=== PATIENT | female | born 1975 | race Caucasian/White ===

== ENCOUNTER → 2017-09-10 14:56 | Outpatient (REF) | payer BC, SELFPAY ==
--- NOTE | 2017-09-10 13:30 | PAPFT_PTH ---
PATIENT: Nancy Carrion LOC: [facility] U#:[id number] AGE/SX: 49/F ROOM: RE09/10/[address]: Romel Hawkins : 1975 BED: DIS: SPEC #: [id number] RECD: 09/12/17 12:51 STATUS: JEANINE SAN #: [id number] ASIF: 09/10/17 13:[address]: Romel Hawkins DEPT: [facility] Cytology RECD BY: Diana Garcia Tissues: 1 - CX/ENDOCX FOR PAP SMEARS Procedures: PAP THIN PREP/UVM Screening HPV DNA PROBE Comments: [id number]
== END ==
LOC: NCHCN 14:56
PROVIDERS: PCP Physician Assistant Medical; Visit Provider Physician Assistant Medical
DX: Z12.4 Encounter for screening for malignant neoplasm of cervix (principal); Z11.51 Encounter for screening for human papillomavirus (HPV)
CPT/HCPCS: 88142; 87624

== ENCOUNTER → 2017-09-17 00:50 | Outpatient (CLI) | payer BC, SELFPAY ==
--- NOTE | 2017-09-17 08:00 | DI.REPORT_ITS ---
SYMPTOM/DIAGNOSIS: SCREENING, [facility] MAINTENANCE, Z00.8 MAMMOGRAM: Mammograms were interpreted according to the usual protocol including computer analysis with CAD system, tomosynthesis and C view imaging. No previous images were extent at the time of this interpretation. The breast tissue is of moderate radiodensity. Regions of increased density are identified in the upper outer quadrant of each breast. On the CC projection there is a question regarding the possibility of bilateral lateral breast masses. Further assessment with bilateral CC compression spot films and ultrasound is recommended. IMPRESSION: Further assessment with bilateral CC compression spot films and ultrasound is recommended. MQSA ASSESSMENT OF FINDINGS: Incomplete: Needs additional imaging evaluation. Category 0. Patient will receive a letter notifying them of these results. BI-RADS category B. There are scattered areas of fibroglandular density.
== END ==
PROVIDERS: PCP Physician Assistant Medical; Visit Provider Physician Assistant Medical
DX: Z00.00 Encounter for general adult medical examination without abnormal findings (principal); Z12.31 Encounter for screening mammogram for malignant neoplasm of breast; R92.8 Other abnormal and inconclusive findings on diagnostic imaging of breast
CPT/HCPCS: 77063; 77067

== ENCOUNTER → 2017-09-17 07:53 | Outpatient (CLI) | payer BC, SELFPAY ==
[2017-09-17 08:59] LABS: BUN 12 mg/dL (7-18); CREATININE 0.91 mg/dL (0.55-1.02); Calcium 8.6 mg/dL (8.5-10.1); Chloride 104 mmol/L (98-107); Cholesterol 187 mg/dL (50-200); Glucose 84 mg/dL (70-100); HDL Cholesterol 51 mg/dL (40-60); LDL CHOLESTEROL 124 mg/dL (<100); Potassium 4.3 mmol/L (3.5-5.1); Sodium 138 mmol/L (136-145); Triglyceride 96 mg/dL (30-150)
== END ==
PROVIDERS: PCP Physician Assistant Medical; Visit Provider Physician Assistant Medical
DX: Z00.00 Encounter for general adult medical examination without abnormal findings (principal); Z13.220 Encounter for screening for lipoid disorders; Z13.228 Encounter for screening for other metabolic disorders
CPT/HCPCS: 36415; 80048; 80061; 83721

== ENCOUNTER → 2017-09-26 03:04 | Outpatient (CLI) | payer BC, SELFPAY ==
--- NOTE | 2017-09-26 09:42 | DI.REPORT_ITS ---
SYMPTOM/DIAGNOSIS: F/U ABNL MAMMO, INCREASED DENSITY UPPER OUTER QUADRANT BOTH BREASTS ADDITIONAL VIEWS BOTH BREASTS: Additional images are interpreted according to the usual protocol including tomosynthesis and 2D imaging. CC spot compression views with tomography were performed of the posterolateral portions of both breasts. No persistent abnormality is seen. The findings are consistent with overlapping fibroglandular tissue. IMPRESSION: Category 1-B, negative mammogram. Bilateral screening is recommended in one year. SA ASSESSMENT OF FINDINGS: Negative. Category 1. Patient will receive a letter notifying them of these results. BI-RADS category B. There are scattered areas of fibroglandular density.
== END ==
PROVIDERS: PCP Physician Assistant Medical; Visit Provider Physician Assistant Medical
DX: Z12.31 Encounter for screening mammogram for malignant neoplasm of breast (principal); R92.8 Other abnormal and inconclusive findings on diagnostic imaging of breast; N64.59 Other signs and symptoms in breast
CPT/HCPCS: 77063; 77067

== ENCOUNTER → 2017-09-30 16:40 | Outpatient (REF) | payer BC, SELFPAY | LOC: NCHCN 16:40 | PROVIDERS: PCP Physician Assistant Medical; Visit Provider Family Medicine | DX: J02.9 Acute pharyngitis, unspecified (principal) | CPT/HCPCS: 87070 ==

== ENCOUNTER 2018-01-08 06:08 | Day surgery (SDC) | payer BC, SELFPAY ==
[2018-01-08 06:15] VITALS: BP 122/85; PULSE 88; RESP 20; TEMP 36.7; O2SAT 100
--- NOTE | 2018-01-08 06:32 | HPE_ITS ---
Date of service: 01/08/18 Time of Service: 06:32 Assessment and Plan (1) Family history of malignant neoplasm of colon in first degree relative diagnosed when younger than 60 years of age: Current visit: No Status: Acute P\\ Colonoscopy under sedation in December Risks, benefits and complications have been reviewed. Complications include but are not limited to bleeding, pain, perforation, missed small lesion/ polyp, sore throat, aspiration and adverse reaction to the medications. Questions were entertained and answered to their satisfaction and they wished to proceed. No guarantees were given or implied. History of Present Illness Narrative: Has had small hemorrhoids in the past. Had one hard BM on Friday and noted a swollen hemorrhoid. It has persisted and has increased in size some. She has been doing sitz baths. She has not tried a hemorrhoid cream yet. It is uncomfortable when sitting for long periods but tolerable. She has not had any bleeding. She also mentioned that she has a family history of colon cancer. Her brother was diagnosed at age 50 and her father at age 60. She had a colonoscopy/EGD about 12 years ago for some GI issues that ended up being ivet to allergies. She has had no reflux symptoms since avoiding the foods she is allergic to. She denies any changes in bowel habits, melena or hematochezia. No changes in her health since I last saw her. Her thrombosed hemorrhoid that was opened up has healed Review of Systems Constitutional Denies fever(s) Cardiovascular Denies chest pain, Denies rapid heart rate, Denies palpitations, Denies dyspnea and Denies dyspnea on exertion Respiratory Denies dyspnea and Denies dyspnea on exertion Gastrointestinal Reports as per HPI Endocrine Denies palpitations PFSH Family History Father Colon cancer Brother Colon cancer Mother Heart disease Medical History Allergic rhinitis (Chronic) GERD (gastroesophageal reflux disease) (Chronic) Internal hemorrhoids (Chronic) Multiple food allergies (Chronic) Seasonal allergies (Chronic) Social History household members: spouse Smoking/Tobacco Use Status: Never alcohol intake: current alcohol intake frequency: holidays/special occasions only substance use type: does not use Surgical History H/O colonoscopy (Resolved ~2004) History of bunionectomy of both great toes (Resolved) Meds Home Medications Medication Instructions Recorded Confirmed Type mometasone [Nasonex] 17 gm NS DIRECTED 12/29/14 01/08/18 History bisacodyl 5 mg tablet,delayed 5 mg PO ONCE #4 tab 11/07/17 01/08/18 Rx release polyethylene glycol 3350 17 gram 255 g PO DAILY #15 each 11/07/17 01/08/18 Rx oral powder packet calcium-magnesium 1 tab PO BID 01/08/18 01/08/18 History norethindrone ac-eth estradiol 1 tab PO DAILY 01/08/18 01/08/18 History [Microgestin 1.5 (21)] Allergies Allergy/AdvReac Type Severity Reaction Status Date / Time chlorhexidine Allergy Severe felt like Verified 01/08/18 06:24 my foot was on fire erythromycin base Allergy Severe vomiting Verified 01/08/18 06:24 Exam Resp Effort & Inspection: normal respiratory effort Auscultation: clear to auscultation bilaterally Cardio Rate: regular rate Rhythm: regular rhythm Heart Sounds: no click, no gallops, no murmurs and no rubs Results Last Vital Signs Temp 98.1 F 01/08/18 06:15 Pulse 88 01/08/18 06:15 Resp 20 01/08/18 06:15 BP 122/85 01/08/18 06:15 Pulse Ox 100 01/08/18 06:15
--- NOTE | 2018-01-08 06:38 | COLE_ITS ---
Date of service: 01/08/18 Time of Service: 07:28 Colonoscopy Report Date of procedure: 01/08/18 Pre-op diagnosis general: Family History of colon Cancer in first degree relative <60 Post-op diagnosis procedure note: same Procedure: Colonoscopy Surgeon: Aletha Mathur Anesthesia proc note operative: MAC ([place], PUBLIC SAF[employer]Y POLICE / ASA 2) Estimated blood loss (mL): 0 Pathology: none sent Complications: None Disposition: same day Indications: Mrs Carrion is a pleasant 42-year-old female who was seen in the office for a thrombosed hemorrhoid as well as to discuss a colonoscopy. Her father had colon cancer at age 60 and her brother was diagnosed at age 50. Risks, benefits, and complications of the procedure were reviewed with her and she wished to proceed. No guarantees were given or implied. Prep: Miralax/Dulcolax Procedure Start Time: :28 Procedure End Time: 07:49 Retraction Time: 14 minutes Findings: Normal Colon Procedure Description: After informed consent was obtained the patient was taken to the procedure room and placed in a left decubitous position. Monitors were applied and a time out was done. The patients name, date of , procedure, allergies to medications and metal in their body was reviewed. The patient was then sedated. Once sedated and comfortable a rectal exam was done. External exam was normal. Internal exam revealed a normal sphincter tone and no palpable masses. The scope was then introduced and retro-flexed. No internal hemorrhoids were identified. The scope was then advanced to the cecum without difficulty. The TI and appendiceal orifice were identified. The prep was good. The scope was then slowly retracted over 14 minutes back into the rectum. The scope was removed and the patient was woken up and taken back to Same day surgery in stable condition. The patient tolerated the procedure well and there were no immediate complications. Follow up: The patient should follow up in 5 years due to her family history, unless they develop changes in bowel habits or other new gastrointestinal complaints.
--- NOTE | 2018-01-08 06:40 | PDOC.DSDIS_ITS ---
Discharge Plan Disposition Patient Disposition: HOME Condition: Good Discharge Details Reason For Visit: Colonoscopy Attending Provider: Aletha Mathur Primary Care Provider: Romel Hawkins Home Meds and New Rx's Prescriptions: Continue mometasone [Nasonex] 17 GM spray,non-aerosol 17 gm NS DIRECTED RF: 0 norethindrone ac-eth estradiol [Microgestin 1.5/30 (21)] 1.5-30 mg-mcg Tablet 1 tab PO DAILY RF: 0 calcium-magnesium 300-300 mg Tablet 1 tab PO BID RF: 0 Discontinued bisacodyl [Dulcolax (bisacodyl)] 5 mg tablet,delayed release (DR/EC) 5 mg PO ONCE Qty: 4 RF: 0 polyethylene glycol 3350 17 gram powder in packet 255 g PO DAILY Qty: 15 RF: 0 Discharge Instructions Instructions: Colonoscopy (DC) Additional Instructions: Findings: Normal Colon Follow up: 5 years due to your family history New Medications: none Please call if you develop: fevers >101.5 Nausea or Vomiting Abdominal pain that is not transient DAY SURGERY UNIT POST COLONOSCOPY INSTRUCTIONS 1. Because there will be medication in your system for the next 24 hours, you may feel a little sleepy. Your coordination will be affected. Therefore: a. Do not drive or operate dangerous equipment for 24 hours. b. Do not drink alcohol beverages for 24 hours (not even beer). c. Plan to go home and rest for the day. 2. Generally there are no restrictions on your activity after a day or so has gone by, but you may feel a bit fatigued for a few days. 3 After you arrive home you may have a light meal and return to a normal diet as you can tolerate it without feeling sick to your stomach. 4. After surgery, you may feel pain or discomfort. This should be only transient , but if it persists please contact your doctor. 5. If there are any questions regarding the findings of your procedure, please feel free to contact your doctor. 6. If you are unable to contact your doctor with a problem, contact the hospital at [phone]. 7. Continue all your regular medications unless directed otherwise. I understand the above instructions and have no questions. Signature of Patient or Responsible Adult Escort Date/Time Name of Responsible Adult Escort Signature of Nurse Date/Time Stand Alone Forms: Marvin Samayoa (DSU) Activity:: Activity as Tolerated Diet:: As Tolerated Discharge Orders Discharge Orders: Discharge Order (Routine); Ordered 01/08/18 Ordered By: Aletha Mathur DS: Diagnosis Discharge Diagnosis (1) Family history of malignant neoplasm of colon in first degree relative diagnosed when younger than 60 years of age: Status: Acute
[2018-01-08] MEDS: Lactated Ringers 1,000 ML 80 ML IV (06:44)
[2018-01-08 08:17] VITALS: BP 122/86; PULSE 68; RESP 18; TEMP 37.2; O2SAT 100
== END 2018-01-08 08:39 | disposition home or self-care (01) ==
PROVIDERS: PCP Physician Assistant Medical; Visit Provider Surgery
PROC: 0DJD8ZZ Inspection of Lower Intestinal Tract, Via Natural or Artificial Opening Endoscopic (ICD-10-PCS; CPT 45378; principal; 2018-01-08 07:45)
DX: Z12.11 Encounter for screening for malignant neoplasm of colon (principal); Z80.0 Family history of malignant neoplasm of digestive organs; K21.9 Gastro-esophageal reflux disease without esophagitis
CPT/HCPCS: 45378; 81025; NC; J3010

== ENCOUNTER 2018-01-17 00:18 | Emergency (ER) | payer BC, SELFPAY ==
[2018-01-17 00:21] VITALS: BP 154/95; PULSE 89; RESP 20; TEMP 36.4; O2SAT 100
--- NOTE | 2018-01-17 00:44 | DI.CT_ITS ---
SYMPTOM/DIAGNOSIS: HEADACHE NONCONTRAST HEAD CT: No intracranial hemorrhage, mass or infarct is seen. There is no evidence of skull fracture. The visualized portions of the sinuses and mastoid air cells appear clear. IMPRESSION: Negative head CT
--- NOTE | 2018-01-17 00:46 | ED.GENADUL_ITS ---
Discharge Plan Disposition Patient Disposition: HOME Condition: Good Discharge Details Chief Complaint: Headache Clinical Impression: Headache Primary Care Provider: Romel Hawkins ED Provider: Jeff Tomas [place] Meds and New Rx's Prescriptions: Continue mometasone [Nasonex] 17 GM spray,non-aerosol 17 gm NS DIRECTED RF: 0 norethindrone ac-eth estradiol [Microgestin 1.5 (21)] 1.5-30 mg-mcg Tablet 1 tab PO DAILY RF: 0 calcium-magnesium 300-300 mg Tablet 1 tab PO BID RF: 0 Discharge Instructions Instructions: General Headache (ED) Additional Instructions: Your head CT is negative and was done within 6 hours of onset of headache. The likelihood of you having subarachnoid hemorrhage is probably around 1% but not 0. We discussed lumbar puncture which you have declined. Follow-up with primary care next week. Return to ED at once for worsening headache, lethargy, confusion, neurologic changes. Referrals: Romel Hawkins PA [Primary Care Provider] - Discharge Data Discharge Date/Time-TO BE ENTERED AT DEPARTURE: 01/17/18 03:13 Medical Decision Making Patient here with posterior headache that is described as constant. She did have associated nausea and vomiting. She does not have photophobia. She denies having frequent headaches. She is neurologically intact. Headache was not thunderclap but worsened over time. Does radiate into the neck to some degree but she has no meningeal signs and a normal supple neck. I do not suspect meningitis. Subarachnoid hemorrhage seems unlikely given the worsening of the headache over time as opposed to abrupt onset. However, this is the worst headache of her life. She is being seen within 6 hours of onset of headache. IV is established and CBC sent. IV fluids and Reglan given. She has already taken Benadryl. Head CT ordered. Patient's head CT is read as normal. CBC is normal. Neurological exam is normal. There is no altered mental status. Headache is not better with Reglan. I did discuss with the patient at length risk and benefit of lumbar puncture versus no lumbar puncture based on normal head CT and neurologic exam within 6 hours of onset of headache. Patient declined lumbar puncture and does not want to procedure. IV Toradol ordered for pain. On reevaluation patient's headache is significantly better though not gone. She remains neurologically intact. Further discussion held on signs and symptoms of subarachnoid hemorrhage. Continues to decline lumbar puncture. Follow-up with primary care next week and return to ED for any new or worsening symptoms. Lab Data Lab results reviewed: Yes I reviewed the patient's lab results. HPI General Mode of arrival: ambulatory . Date/Time Provider Initiated Documentation: 01/17/18 00:42 . Limitations to Documentation: no limitations . Information obtained by: patient . HPI Narrative: Patient presents to ED with complaint of headache. Patient reports that she does not get frequent headaches. This headache is posterior at the base of her skull with a little bit of radiation into the neck. Started out about 7:30 PM as a regular headache. It has got worse. She took Benadryl but no Tylenol or Motrin. She had a few episodes of nausea and vomiting as the headache got worse. She has not developed any neurologic symptoms other than the headache. She has no photophobia. Pain is not throbbing in nature. It is just a constant pain in the back of the head. She has not had a headache like this previously and describes it as the worst of her life though not thunderclap. Related Data Home Medications Medication Instructions Recorded Confirmed mometasone [Nasonex] 17 gm NS DIRECTED 12/29/14 01/17/18 calcium-magnesium 1 tab PO BID 01/08/18 01/17/18 norethindrone ac-eth estradiol 1 tab PO DAILY 01/08/18 01/17/18 [Microgestin 1.5/30 (21)] Allergies Allergy/AdvReac Type Severity Reaction Status Date / Time chlorhexidine Allergy Severe felt like Verified 01/17/18 00:23 my foot was on fire erythromycin base Allergy Severe vomiting Verified 01/17/18 00:23 General Stated Complaint: Headache SHARMIN: 3 Review of Systems Constitutional Denies chills, Denies fever(s), Reports headache(s) and Denies weakness Eyes Denies change in vision, Denies eye pain and Denies photophobia ENT Denies vertigo, Denies dizziness, Denies otalgia, Denies facial pain, Reports headache(s), Reports neck pain, Denies sinus pain and Denies sinus pressure Cardiovascular Denies chest pain, Denies syncope, Denies lightheadedness and Denies dyspnea Respiratory Denies cough and Denies dyspnea Gastrointestinal Denies abdominal pain, Denies diarrhea, Reports nausea and Reports vomiting Genitourinary Denies dysuria, Denies pelvic pain and Denies flank pain Musculoskeletal Denies abnormal gait, Denies back pain, Denies myalgias, Reports neck pain, Denies numbness and Denies tingling Integumentary/Breasts Denies rash Neurologic Denies abnormal speech, Denies abnormal gait, Denies confusion, Denies vertigo, Denies dizziness, Denies syncope, Reports headache(s), Denies focal weakness, Denies numbness, Denies tingling, Denies paresthesias and Denies weakness Psychiatric Denies confusion PFSH Allergic rhinitis (Chronic) GERD (gastroesophageal reflux disease) (Chronic) Internal hemorrhoids (Chronic) Multiple food allergies (Chronic) Seasonal allergies (Chronic) Family History Father Colon cancer Brother Colon cancer Mother Heart disease Colonoscopy planned (Acute ~01/08/18) H/O colonoscopy (Resolved ~2004) History of bunionectomy of both great toes (Resolved) Family History Father Colon cancer Brother Colon cancer Mother Heart disease Medical History Allergic rhinitis (Chronic) GERD (gastroesophageal reflux disease) (Chronic) Internal hemorrhoids (Chronic) Multiple food allergies (Chronic) Seasonal allergies (Chronic) Social History household members: spouse Smoking/Tobacco Use Status: Never alcohol intake: current alcohol intake frequency: holidays/special occasions only substance use type: does not use Surgical History Colonoscopy planned (Acute ~01/08/18) H/O colonoscopy (Resolved ~2004) History of bunionectomy of both great toes (Resolved) Social History household members: spouse Smoking/Tobacco Use Status: Never alcohol intake: current alcohol intake frequency: holidays/special occasions only substance use type: does not use Exam Const General: cooperative, uncomfortable and no acute distress Orientation: alert and oriented x3 HENMT Head: normocephalic and atraumatic Face and sinus: normal facial exam Eyes Eyelids: eyelid abnormality left upper eyelid inflamed cyst external lid Pupils: PERRL EOM: EOM intact bilaterally Neck Neck: normal visual inspection, full ROM, trachea midline and supple Resp Effort & Inspection: normal respiratory effort Auscultation: clear to auscultation bilaterally Cardio Rate: regular rate Rhythm: regular rhythm Heart Sounds: S1 normal and S2 normal GI Palpation: soft and nontender Skin General skin exam: no rashes or lesions noted Neuro General: alert, oriented x3, gait normal, moves all extremities, no meningeal signs, no focal motor deficits and CN's II-XI intact bilaterally Sensory Exam: no sensory deficits noted Extrem General: normal to inspection, full ROM and no clubbing, cyanosis or edema Course Vital Signs Temperature 97.5 F L 01/17/18 00:21 Pulse 89 01/17/18 00:21 Respiratory Rate 20 18 00:21 Blood Pressure 154/95 H 01/17/18 00:21 Pulse Oximetry 100 01/17/18 00:21 Temperature 97.5 F L 01/17/18 00:21 Temperature Source Temporal Artery Scan 01/17/18 00:21 Pulse 89 18 00:21 Respiratory Rate 20 01/17/18 00:21 Respiratory Effort Non-Labored 01/17/18 00:21 Blood Pressure 154/95 H 01/17/18 00:21 Pulse Oximetry 100 01/17/18 00:21 Oxygen Delivery Method Room Air 01/17/18 00:21 Oxygen Flow Rate 0 01/17/18 00:21 Pain Level 10 01/17/18 00:24
[2018-01-17 00:59] LABS: HCT 36.8 % (36.0-46.0); HGB 12.9 g/dL (12.0-15.5); Mean Corp. HGB Concentration 35.1 g/dL (32.0-36.0); Mean Corpuscular Hemoglobin 32.3 pg (27.0-33.0); Mean Corpuscular Volume 92.2 fL (80-95); Mean Platelet Volume 9.1 fL (8.0-11.0); Platelet Count 325 x1000/uL (130-400); RBC 3.99 m/cumm (4.00-5.20); RBC Distribution Width 11.3 % (11.7-14.6); White Blood Cell Count 10.44 k/cumm (4.4-10.8)
--- NOTE | 2018-01-17 01:12 | DI.VRAD_ITS ---
EXAM: CT Head Without Contrast EXAM DATE/TIME: 01/17/2018 12:46 AM CLINICAL HISTORY: 42 years old, female; Signs and symptoms; Other: Headache; Additional info: Headache since 0701/16/18 TECHNIQUE: Axial computed tomography images of the head/brain without contrast. All CT scans at this facility use at least one of these dose optimization techniques: automated exposure control; mA and/or kV adjustment per patient size (includes targeted exams where dose is matched to clinical indication); or iterative reconstruction. Coronal and sagittal reformatted images were created and reviewed. COMPARISON: No relevant prior studies available. FINDINGS: Brain: Typical for age. No hemorrhage. No evidence of acute infarct. No mass. Ventricles: No ventriculomegaly. Bones/joints: Unremarkable. Sinuses: No sinus fluid. Mastoid air cells: Unremarkable. Soft tissues: Unremarkable. IMPRESSION: No acute intracranial abnormality. Dictated and Authenticated by: Gagandeep Roblero MD. Ordering:MABEL FERNANDES MD
[2018-01-17] MEDS: Normal Saline Flush 10 ML SYR IVP (01:34)
[2018-01-17] MEDS: Metoclopramide 10 MG/2 ML VIAL IVP (01:34)
[2018-01-17] MEDS: Normal Saline 1,000 ML 1000 ML IV (01:34)
[2018-01-17] MEDS: Ketorolac 15 MG/ML VIAL IVP (02:00)
[2018-01-17 02:42] VITALS: BP 120/74; PULSE 75; RESP 18; TEMP 37.5; O2SAT 98
[2018-01-17 03:21] VITALS: BP 120/74; PULSE 75; RESP 18; TEMP 37.5; O2SAT 98
== END 2018-01-17 03:13 | disposition home or self-care (01) ==
LOC: ER 03:19
PROVIDERS: Emergency Provider Emergency Medicine; PCP Physician Assistant Medical
DX: R51 Headache (principal); R11.2 Nausea with vomiting, unspecified
CPT/HCPCS: 36415; 81025; 85027; 96374; 96375; 99284; 70450; 99285; J1885; J2765

== ENCOUNTER 2018-06-02 07:47 | Outpatient (CLI) | payer BC, SELFPAY ==
[2018-06-02 08:28] LABS: Absolute Basophil Count 0.05 k/cumm (0.0-0.2); Absolute Eosinophil Count 0.11 k/cumm (0.0-0.7); Absolute Lymphocyte Count 1.69 k/cumm (1.2-3.4); Absolute Monocyte Count 0.41 k/cumm (0.11-0.7); Absolute Neutrophil Count 3.11 k/cumm (1.2-6.7); Basophils % 0.9; HCT 36.2 % (36.0-46.0); HGB 12.4 g/dL (12.0-15.5); Lymphocytes % 31.5; Mean Corp. HGB Concentration 34.3 g/dL (32.0-36.0); Mean Corpuscular Hemoglobin 31.8 pg (27.0-33.0); Mean Corpuscular Volume 92.8 fL (80-95); Mean Platelet Volume 9.4 fL (8.0-11.0); Monocytes % 7.6; Platelet Count 311 x1000/uL (130-400); RBC Distribution Width 11.5 % (11.7-14.6); White Blood Cell Count 5.37 k/cumm (4.4-10.8)
[2018-06-02 08:58] LABS: Iron 94 ug/dL (50-175); Total Iron Binding Capacity 275 ug/dL (250-450); Transferrin Sat 34 % (15-50)
[2018-06-02 09:09] LABS: ALT 21 U/L (12-78); AST 17 U/L (15-37); Albumin 3.9 g/dL (3.4-5.0); Alkaline Phosphatase 52 U/L (46-116); Anion Gap 7.6 mmol/L (3-11); BUN 15 mg/dL (7-18); Bilirubin, Total 0.5 mg/dL (0.2-1.0); CO2 26.4 mmol/L (21.0-32.0); CREATININE 0.83 mg/dL (0.55-1.02); Chloride 104 mmol/L (98-107); FREE T4 0.96 ng/dL (0.76-1.46); Glucose 86 mg/dL (70-100); Potassium 4.1 mmol/L (3.5-5.1); Sodium 138 mmol/L (136-145); TSH 2.34 uIU/mL (0.358-3.74); Total Protein 6.8 g/dL (6.4-8.2)
[2018-06-02 09:11] LABS: Ferritin 81 ng/mL (8-388)
[2018-06-02 09:56] LABS: Folate 17.3 ng/mL (8.6-20.0); Vitamin B12 543 pg/mL (193-986)
[2018-06-02 17:42] LABS: T3,Free 3.7 pg/ml (2.8-5.3)
[2018-06-02 19:46] LABS: Vitamin D 25 Total 48.7 ng/ml (30-100)
== END 2018-06-02 08:07 ==
PROVIDERS: PCP Physician Assistant Medical; Visit Provider Naturopath
DX: R53.83 Other fatigue (principal)
CPT/HCPCS: 36415; 80053; 82306; 82607; 82728; 82746; 83540; 83550; 84439; 84443; 84481; 85025

== ENCOUNTER 2018-11-06 09:35 | Outpatient (REF) | payer BC, SELFPAY ==
[2018-11-06 19:44] LABS: Calculated LDL 125 mg/dL; Cholesterol 205 mg/dL (50-200); HDL Cholesterol 66 mg/dL (40-60); Triglyceride 74 mg/dL (30-150)
== END 2018-11-06 09:55 ==
LOC: NCHCN 09:35
PROVIDERS: PCP Physician Assistant Medical; Visit Provider Physician Assistant Medical
DX: Z00.00 Encounter for general adult medical examination without abnormal findings (principal); Z13.220 Encounter for screening for lipoid disorders
CPT/HCPCS: 80061

== ENCOUNTER 2018-11-16 01:10 | Outpatient (CLI) | payer BC, SELFPAY ==
--- NOTE | 2018-11-16 16:59 | DI.MAMMO_ITS ---
EXAM: MAMMO SCREENING CLINICAL HISTORY: HEALTH MAINTENANCE Z00.8, SCREENING. TECHNIQUE: Mammograms were interpreted according to the usual protocol including computer analysis w [facility] CAD system, tomosynthesis and C-view imaging. COMPARISON: 2018 FINDINGS: The breasts are composed of scattered areas of fibroglandular tissue, breast density category B. The re are no suspicious masses or microcalcifications. There are no significant changes in comparison wi th the prior images. IMPRESSION: BI-RADS Cat 1 - Negative Breast Density - Category B - Scattered areas of fibroglandular density
== END 2018-11-16 01:30 ==
PROVIDERS: PCP Physician Assistant Medical; Visit Provider Physician Assistant Medical
DX: Z12.31 Encounter for screening mammogram for malignant neoplasm of breast (principal)
CPT/HCPCS: 77063; 77067

== ENCOUNTER 2019-05-07 11:16 | Outpatient (CLI) | payer BC, SELFPAY ==
--- NOTE | 2019-05-07 10:49 | DI.RAD_ITS ---
EXAM: XR SHOULDER RT COMPLETE 2+V CLINICAL HISTORY: RT SHOULDER PAIN, M25.511, RT NECK PAIN, M54.2. TECHNIQUE: 2D digital imaging was performed. COMPARISON: No exams were available for comparison FINDINGS: BONES: No acute fracture is present. No bony destructive lesion is seen. JOINTS: No dislocation present. SOFT TISSUE: Normal. IMPRESSION: Unremarkable radiographs of the right shoulder. DATA REPOSITORY: RADIATION DOSE DELIVERED:
--- NOTE | 2019-05-07 11:56 | DI.RAD_ITS ---
EXAM: XR CERVICAL SPINE COMP 4-5V CLINICAL HISTORY: RT SHOULDER PAIN, M25.511, RT NECK PAIN, M54.2. TECHNIQUE: 2D digital imaging was performed. COMPARISON: No exams were available for comparison FINDINGS: BONES: No fracture or destructive lesion. Vertebral bodies are unremarkable. DISKS: Intervertebral disc spaces are maintained. There are endplate osteophytes at the C5-C6 disc le josselyn. ALIGNMENT: Cervical spinal alignment is within normal limits. The odontoid and atlantoaxial articulat ions are normal. SOFT TISSUE: Normal. The lung apices are clear. IMPRESSION: Mild cervical spondylosis at C5-C6. DATA REPOSITORY: RADIATION DOSE DELIVERED:
== END 2019-05-07 11:36 ==
PROVIDERS: PCP Physician Assistant Medical; Visit Provider Physician Assistant Medical
DX: M25.511 Pain in right shoulder (principal); M54.2 Cervicalgia; M47.812 Spondylosis without myelopathy or radiculopathy, cervical region
CPT/HCPCS: 72050; 73030

== ENCOUNTER 2019-05-13 02:11 | Outpatient (CLI) | payer BC, SELFPAY ==
--- NOTE | 2019-05-13 | DI.MRI_ITS ---
EXAM: MR CERVICAL SPINE WO CLINICAL HISTORY: CERVICAL SPONDYLOSIS, M47.812,RT NECK PAIN, M54.2. TECHNIQUE: Multiplanar multisequence MRI was performed. COMPARISON: No exams were available for comparison FINDINGS: MR examination the cervical spine was performed according to the usual protocol no significant bony s ignal is seen. The posterior fossa structures appear intact as visualized. At the C6-7 level, there is mild prominence of the vertebral endplates. There is an apparent superim posed moderate sized right paracentral disc herniation which causes mild anterior right contour defor mity of the spinal cord without evidence intra cord signal abnormality. No other disc herniation identified in the cervical region. No central canal spinal stenosis or neur al foraminal stenosis. IMPRESSION: Right paracentral C6-7 disc herniation with mild impingement on right anterior spinal cord surface at this level. No other significant findings. DATA REPOSITORY:
== END 2019-05-13 02:31 ==
PROVIDERS: PCP Physician Assistant Medical; Visit Provider Physician Assistant Medical
DX: M54.2 Cervicalgia (principal); M47.812 Spondylosis without myelopathy or radiculopathy, cervical region; M50.223 Other cervical disc displacement at C6-C7 level
CPT/HCPCS: 72141

== ENCOUNTER 2019-08-31 12:54 | Outpatient (CLI) | payer BC, SELFPAY ==
--- NOTE | 2019-08-31 06:00 | DI.RAD_ITS ---
EXAM: XR PAIN CLINIC CERVICAL SP 2V CLINICAL HISTORY: Dx: Cervical Radiculopathy TECHNIQUE: 2D and realtime digital imaging was performed. CONTRAST MATERIAL: Refer to procedure report. COMPARISON: No exams were available for comparison FINDINGS: Fluoroscopy was provided for Dr. Magallanes during the performance of a C7-T1 injection. Please refer to th e procedure report for complete details. Fluoro time: 26.2 seconds IMPRESSION:
[2019-08-31 12:58] VITALS: BP 137/95; PULSE 75; RESP 18; TEMP 37.1; O2SAT 99
[2019-08-31] MEDS: Midazolam 2 MG/2 ML VIAL IVP (13:51)
[2019-08-31] MEDS: Lactated Ringers 1,000 ML 80 ML IV (13:51)
[2019-08-31] MEDS: Dexamethasone Sod. Phos./Pres-Free 10 MG/ML VIAL IJ (14:01)
[2019-08-31 14:02] VITALS: BP 129/89; PULSE 87; RESP 19; O2SAT 100
[2019-08-31] MEDS: Omnipaque 240 MG/ML 50 ML BTL IJ (14:02)
--- NOTE | 2019-08-31 14:26 | PDOC.PAIN ---
Pain Clinic Procedure Note Procedure Note Procedure Note: Cervical Epidural Steroid Injection WILLIAM MURILLO has been referred to the [facility] for interlaminar cervical epidural steroid injection. Pre-operative diagnosis: cervical radiculopathy Post-operative diagnosis: same Patient was interviewed and the medical record reviewed. There were no medical, pharmacologic, radiographic or other structural contraindications to attempting fluoroscopically guided epidural steroid injection. Risks and expected side effects as well as potential benefit of the procedure were reviewed and voiced concerns addressed. The printed consent form was signed and witnessed. Standard time-out procedure was performed. The patient was placed in the prone position on the fluoroscopy table and automated blood pressure cuff and pulse oximeter applied. The skin entry point for entering the epidural space by a midline C7-T1 interlaminar approach was identified under fluoroscopy and marked. Following thorough Chlorhexadine preparation of the skin and draping and 1% lidocaine infiltration of the skin entry point and subcutaneous tissues, an 18 gauge Tuohy needle was placed under fluoroscopic guidance and with loss of resistance technique into the epidural space. Upon needle placement and loss of resistance there were no paresthesiae or return of blood or CSF through the needle. 1ml of Omnipaque 240 were injected with clear epidural spread in the A/P, oblique views. 15mg of preservative-free Dexamethasone with 1ml sterile normal saline were injected through the needle with no unusual discomfort expressed. The needle was removed without difficulty. A bandage was placed. Vital signs were stable throughout the procedure and were as recorded in the docflowsheet by the nursing staff. If given, dosages of intravenous drugs for anxiolysis and analgesia were documented in MAR. Follow up plans and appointments were discussed. Post procedure instruction was given as documented in nursing documentation and having met discharge criteria and was discharged from the [facility]. COMMENTS: patient received 1mg of IV versed. Jessica Magallanes MD Pain Management CC: Romel Hawkins
== END 2019-08-31 13:14 ==
PROVIDERS: PCP Physician Assistant Medical; Visit Provider Internal Medicine
DX: M54.12 Radiculopathy, cervical region (principal)
CPT/HCPCS: 62321; 72040; J2250; Q9967

== ENCOUNTER 2019-10-14 11:51 | Outpatient (CLI) | payer BC, SELFPAY ==
[2019-10-14 11:58] VITALS: BP 134/90; PULSE 70; RESP 17; TEMP 37.2; O2SAT 100
[2019-10-14] MEDS: Lactated Ringers 1,000 ML 80 ML IV (12:24)
[2019-10-14] MEDS: Midazolam 2 MG/2 ML VIAL IVP (12:30)
[2019-10-14] MEDS: Dexamethasone Sod. Phos./Pres-Free 10 MG/ML VIAL IJ (12:41)
[2019-10-14] MEDS: Omnipaque 240 MG/ML 50 ML BTL IJ (12:41)
[2019-10-14 12:43] VITALS: BP 131/92; PULSE 98; RESP 20; O2SAT 100
--- NOTE | 2019-10-14 12:43 | DI.RAD_ITS ---
EXAM: XR PAIN CLINIC CERVICAL SP 2V CLINICAL HISTORY: Dx: Cervical Radiculopathy TECHNIQUE: 2D and realtime digital imaging was performed. CONTRAST MATERIAL: Refer to procedure report. COMPARISON: No exams were available for comparison FINDINGS: Fluoroscopy was provided for Dr. Rolle during the performance of a C7-T1 epidural steroid injection. Please refer to the procedure report for complete details. Fluoro time: 22 seconds IMPRESSION:
--- NOTE | 2019-10-14 12:44 | PDOC.PAIN ---
Pain Clinic Procedure Note Procedure Note Procedure Note: Cervical Epidural Steroid Injection WILLIAM MURILLO has been referred to the [facility] for cervical epidural steroid injection. COMMENTS: Previously seen in our office. I did re-review the recent cervical MRI DX: Cervical radiculopathy LIDIA was interviewed and the medical record reviewed. There were no medical, pharmacologic, radiographic or other structural contraindications to attempting fluoroscopically guided epidural steroid injection. Risks and expected side effects as well as potential benefit of the procedure were reviewed with LIDIA , and LDIIA voiced concerns addressed. The printed consent form was signed and witnessed. Standard time-out procedure was performed. The patient was placed in the prone position on the fluoroscopy table and automated blood pressure cuff and pulse oximeter applied. The skin entry point for entering the epidural space by a midline C7-T1 interlaminar approach was identified under fluoroscopy and marked. Following thorough Chlorhexadine preparation of the skin and draping and 1% lidocaine infiltration of the skin entry point and subcutaneous tissues, an 18 gauge Tuohy needle was placed under fluoroscopic guidance and with loss of resistance technique into the C7-T1 epidural space. Upon needle placement and loss of resistance there were no paresthesiae or return of blood or CSF through the needle. 1 cc of Omnipaque 240 was injected with clear epidural spread in the A/P, lateral and oblique views. 15 mg of preservative free Dexomethasone was injected with no unusual discomfort expressed by LIDIA. This was flushed with 1 cc of normal saline. LIDIA Coronas vital signs were stable throughout the procedure and were as recorded in the docflowsheet by the nursing staff. Follow up plans and appointments were discussed with the LIDIA. Post procedure instruction was given as documented in nursing documentation and having met discharge criteria, LIDIA was discharged from the [facility] Management [facility]. COMMENTS: This procedure can be completed up to 3 times per 12 months if it is found to be effective. CC: Romel Hawkins
== END 2019-10-14 12:11 ==
PROVIDERS: PCP Physician Assistant Medical; Visit Provider Preventive Medicine Occupational Medicine
DX: M54.12 Radiculopathy, cervical region (principal)
CPT/HCPCS: 62321; 72040; J2250; Q9967

== ENCOUNTER 2020-01-18 04:20 | Outpatient (CLI) | payer BC, SELFPAY ==
[2020-01-18 08:38] LABS: BUN 12 mg/dL (7-18); CREATININE 0.82 mg/dL (0.55-1.02); Calcium 8.6 mg/dL (8.5-10.1); Calculated LDL 105 mg/dL (<100); Cholesterol 168 mg/dL (<200); Glucose 90 mg/dL (74-106); HDL Cholesterol 51 mg/dL (40-60); Total Protein 7.1 g/dL (6.4-8.2); Triglyceride 62 mg/dL (<150)
[2020-01-18 08:39] LABS: ALT 16 U/L (14-59); AST 13 U/L (15-37); Albumin 4.2 g/dL (3.4-5.0); Alkaline Phosphatase 51 U/L (46-116); Anion Gap 9.4 mmol/L (3-11); Bilirubin, Total 0.6 mg/dL (0.2-1.0); CO2 25.6 mmol/L (21.0-32.0); Chloride 102 mmol/L (98-107); Potassium 4.1 mmol/L (3.5-5.1); Sodium 137 mmol/L (136-145)
[2020-01-18 09:19] LABS: Vitamin D 25 Total 40.1 ng/ml (30-100)
== END 2020-01-18 04:40 ==
PROVIDERS: PCP Physician Assistant Medical; Visit Provider Naturopath
DX: E78.5 Hyperlipidemia, unspecified (principal); E55.9 Vitamin D deficiency, unspecified
CPT/HCPCS: 36415; 80053; 80061; 82306

== ENCOUNTER 2020-04-17 04:28 | Outpatient (CLI) | payer BC, SELFPAY ==
[2020-04-17 08:48] LABS: Calcium 8.9 mg/dL (8.5-10.1); Calculated LDL 109 mg/dL (<100); Cholesterol 179 mg/dL (<200); HDL Cholesterol 58 mg/dL (40-60); Triglyceride 63 mg/dL (<150)
[2020-04-17 09:10] LABS: Vitamin D 25 Total 55.2 ng/ml (30-100)
== END 2020-04-17 04:29 | disposition home or self-care (01) ==
LOC: LBO 04:28
PROVIDERS: PCP Physician Assistant Medical; Visit Provider Naturopath
DX: E55.9 Vitamin D deficiency, unspecified (principal); E78.5 Hyperlipidemia, unspecified; E58 Dietary calcium deficiency
CPT/HCPCS: 36415; 80061; 82306; 82310

== ENCOUNTER 2020-04-19 12:27 | Outpatient (REF) | payer BC, SELFPAY ==
--- NOTE | 2020-04-19 13:11 | SKI_PTH ---
PATIENT: Nancy Carrion LOC: [facility] U#:[id number] AGE/SX: 45/F ROOM: RE04/19/[address]: YINA Noel : 1975 BED: DIS: 04/19/2020 SPEC #: [id number] RECD: 04/20/20 12:33 STATUS: JEANINE RELeobardo #: [id number] ASIF: 04/19/20 13:[address]: Smooth Dan DEPT: Surgical Specimen RECD BY: Diana Garcia ENTERED: 04/20/20 12:34 SP TYPE: YARITZA MONTANEZ DR: Romel Hawkins Tissues: 1 - SKIN BIOPSY(SHAVE/PUNCH) 2 - SKIN BIOPSY(SHAVE/PUNCH) Procedures: SKIN LEVEL 4 Comments: [id number]
--- OUTSIDE RECORDS SUMMARY | 2020-04-20 12:33 | XMS_ITS ---
:1975 External Reference #:[id number] Author Care Team Providers Name Role Phone [facility] Primary Care Provider Unavailable Allergies Code Code System Name Reaction Severity Status Onset Erythromycin Nausea ? Active 99 2 Dairy Anaphylaxis Mild Active ? Medications Name Status Start Date Stop Date ? ? Jennifer Allergy 180 mg tablet Active ? No t available Take 1 tablet every week by oral route. baclofen 10 mg tablet Active ? Not availa ble ciprofloxacin 0.3 % eye drops Completed ? compounded medication Active ? Not availa ble Petadolex 1 cap 2x/day Petadolex 2 cap 2x/dY compounded medication Completed ? 11/27/2017 Vitamin C 2000mg 3 xday compounded medication Active ? Not availa ble Pro [place] 2000 1 cap 2xday for 1 month then Pro-omega 1000mg 1 cap 2xday compounded medication Completed ? 11/27/2017 Vitamin A Musion 40, ooo iu for 7 days compounded medication Active ? Not availa ble Calcium citrate/magnesium 2:1 ratio compounded medication Active ? Not availa ble Lipotropic Complex 1 cap 2xday compounded medication Completed ? 11/27/2017 Serretia for sinus congestion and as preventativ e to future sinus infections 1 cap a day and at onset of sinus pressure take full doseIf fever persists or discharge is green dark yellowish call PCP for antibiotics- could also try ALlimax 450mg 1cap 3xday compounded medication Active ? Not availa ble D-mulsion 4 drops /day compounded medication Active ? Not availa ble B2-400 1 cp every other day B2-400 1 cp every other day compounded medication Completed ? 11/27/2017 Zinc A.G. 2 cap 2xday for 10 days then 1 cap 2xday compounded medication Active ? Not availa ble Kailyn 50 -14 1 cap/day for 2 months compounded medication Active ? Not availa ble D-Hist loading dose for 7 days then 1 cap 2-3 times a day compounded medication Completed ? 11/27/2017 Sinus Support 50-60 drops 4 xday compounded medication Active ? Not availa ble Mag Taurate 2 cps 2x/dy Mag Taurate 2cp 2x/day cyclobenzaprine 10 mg tablet Active ? Not available TAKE ONE TABLET BY MOUTH TWICE A DAY NEEDED FOR MUSCLE PAIN cyclobenzaprine 5 mg tablet Active ? Not available diazepam 5 mg tablet Completed ? 11/27/2017 diclofenac potassium 50 mg tablet Active ? Not available dicloxacillin 250 mg capsule Active ? Not available hydrocodone 7.5 mg-acetaminophen 325 mg Completed ? 01/16/2016 tablet hydrocortisone 2.5 % topical cream with Completed ? 11/27/2017 perineal applicator ibuprofen 600 mg tablet Active ? Not avai lable lidocaine 5 % topical ointment Completed ? 1 medroxyprogesterone 150 mg/mL Completed ? intramuscular suspension meloxicam 15 mg tablet Active ? Not avail able Microgestin 1.5/30 (21) 1.5 mg-30 mcg Active ? Not available tablet mometasone 50 mcg/actuation nasal spray Active ? Not available mupirocin 2 % topical ointment Active ? N ot available APPLY TO AFFECTED AREA TWO TIMES A DAY FOR ONE WEEK OR UNTIL RE SOLVED neomycin 3.5 mg/g-polymyxin B 10,000 Active ? Not available unit/g-dexameth 0.1 % eye oint omeprazole 20 mg capsule,delayed Completed ? 11/27/2017 release pimecrolimus 1 % topical cream Active ? N ot available polyethylene glycol 3350 17 gram/dose Active ? Not available oral powder prednisolone acetate 1 % eye Completed ? drops,suspension spironolactone 50 mg tablet Completed ? 07/2015 tretinoin 0.025 % topical cream Active ? Not available valacyclovir 500 mg tablet Completed ? 01/15 Problems Name Status Onset Date Source ? Seizure Disorder Active 10/04/2015 ? Fatigue Active 10/04/2015 ? Papular Eruption Active 10/04/2015 ? Adult Health Examination Active 10/04/2015 ? Folic Acid Deficiency Active 11/09/2015 ? Calcium Deficiency Active 11/09/2015 ? Tetany Active 11/09/2015 ? Chronic Constipation Active 01/16/2016 ? Nausea Active 01/16/2016 ? Abdominal Pain Active 01/16/2016 ? Adverse Reaction to Food Active 01/16/2016 ? Seasonal Allergic Rhinitis Active 06/10/2017 ? Eczema Active 06/10/2017 ? Constipation Alternates with Diarrhea Active 06/10/2017 ? Dietary Management Surveillance Active 06/10/2017 ? Vitamin D Deficiency Active 12/19/2017 ? Migraine Active 02/17/2018 ? Hyperlipidemia Active 01/25/2020 ? Procedures Date Name Performed by ? 12/11/2014 Orthopedic Surgery Information not avai lable 07/12/2011 Colonoscopy Information not avai lable Results Lab Results Date Name Specimen Result Interpretation Description Value Range Status Address ? 04/03/2016 Lipid serum ? Chol 179 <200 [facility], mg/dL mg/dL Diagnostic s: Serum [address] [place], [place] ? ? serum ? Trig 82 <149 [facility] mg/dL mg/dL Diagnostic s: [address] [place], [place] ? ? serum High Ldl 118.5 <99.0 [facility] mg/dL mg/dL Diagnostic s: [address] [place], [place] ? ? serum ? Hdl 48 >39 [facility] mg/dL mg/dL Diagnostic s: [address] [place], [place] ? ? serum ? LDL/HDL 2.5 ? [facility] ratio Diagnostic s: [address] [place], [place] ? ? serum ? Trig/hdl 1.7 <2.0 [facility] ratio ratio Diagnostic s: [address] [place], [place] ? ? serum ? Chol/hdl 3.7 ? [facility] ratio Diagnostic s: [address] [place], [place] ? ? serum ? Vldl 16.4 <30.0 [facility] mg/dL mg/dL Diagnostic s: [address] [place], [place] 04/03/2016 Vitamin D, serum ? Vitamin 31.3 30.0-10 [facility] 25-Hydroxy D 25-Oh NG/mL 0.0 Diagn ostics: , Total, NG/mL [address] Serum [place], [place] Past Encounters 04/20/2020 On Examination - Cardiac Murmur Ya Ortega, ND: [address], [place] [address], Ph. [phone] 01/25/2020 Vitamin D Deficiency; Hyperlipidemia; Di etary Management Surveillance; Calcium Deficiency Ya Ortega, ND: [address] [facility] [place] [address], Ph. [phone] 01/13/2020 Hyperlipidemia; Vitamin D Deficiency; Fo lic Acid Deficiency Ya Ortega, ND: [address] [facility] [place] [address], Ph. [phone] 01/14/2019 Somatic Dysfunction of Bilateral Upper E xtremities; Posterior Rhinorrhea; Vitamin D Deficiency; History of Anemia Ya Ortega, ND: [address] [place] [address], Ph. [phone] Social History Tobacco Smoking Status Never Smoker Vaccine List Vaccine Type DTP 09/10/1981 polio, unspecified formulation 09/11/2015 rubella/mumps 03/13/1992 Td (adult) 09/10/2013 Plan of Care Patient Instructions 1. lipid still slightly high ldl ev en though ratio is great ipo a call for better ldl- 2. pollen allergies? May/June increase histaeze periodically but also look at zinc, Vit a, Vit D, Vit C, Echocardiogram- 1. D-mulsion 4 drops/day retest in 2 months stop 4 days bf test 2. Eusebio/Mg 2:1 2 caps/day 3. Continue fish 1 week and vegetarian 2 xweek- no fried food- potatoe chips, hydrogenat ed processed foods 4. Complete multi 2 cap 2xday with food 5. Active b12 folate 1 tab.day with firs t am serving of multi 1. zinc a.g. 1 tab aday 2. Dexascan start thinking about scdedul e dexa- 3. Viktor Morris- Specialized PT in [place] [facility] 1. NAC 900 1 cap 2xday for 1 week t hen 1 cap /day 1 week if still having problems call the office 2. shoulder stretches- and PT with [facility] 3. Manolo Air filters 4. Conitnue with vitex blend Reminders Provider Appointments None recorded. ? ? Lab None recorded. ? ? Referral None recorded. ? ? Procedures None recorded. ? ? Surgeries None recorded. ? ? Imaging None recorded. ? ? Vitals 04/20/2020 08:00AM ESTABLISHED PATIENT 45 Height Weight BMI Blood Pressure 5 ft 4 in 143 lbs 24.5 kg/m2 112/74 mm[Hg] 01/13/2020 11:00AM ESTABLISHED PATIENT 45 Height Weight BMI Blood Pressure 5 ft 4 in 143 lbs 24.5 kg/m2 132/80 mm[Hg] 01/14/2019 02:15PM ESTABLISHED PATIENT 45 Height Weight BMI Blood Pressure 5 ft 4 in 139 lbs 9.6 oz 24 kg/m2 118/78 mm[Hg] 08/27/2018 08:00AM ESTABLISHED PATIENT 45 Height Weight BMI Blood Pressure 5 ft 4 in 138 lbs 23.7 kg/m2 104/78 mm[Hg] 06/24/2018 03:30PM ESTABLISHED PATIENT 45 Height Weight BMI 5 ft 4 in 139 lbs 23.9 kg/m2 05/05/2018 02:00PM SICK VISIT Height 5 ft 4 in 01/22/2018 01:00PM ESTABLISHED PATIENT 46 Height Weight BMI 5 ft 4 in 138 lbs 9.6 oz 23.8 kg/m2 11/27/2017 05:15PM ESTABLISHED PATIENT 30 Height Weight BMI Blood Pressure 5 ft 4 in 140 lbs 3.2 oz 24.1 kg/m2 (1) 160/90 mm[H g] (2) 156/88 mm[Hg ] 07/15/2017 09:30AM ESTABLISHED PATIENT 30 Height Weight BMI 5 ft 4 in 136 lbs 16 oz 23.5 kg/m2 03/17/2017 01:45PM ESTABLISHED PATIENT 30 Height 5 ft 4 in 07/26/2016 09:00AM SICK VISIT Height 5 ft 4 in 07/04/2016 10:30AM FOLLOW UP 30 Height Weight BMI 5 ft 4 in 144 lbs 16 oz 24.9 kg/m2 05/16/2016 11:30AM FOLLOW UP 30 Height Weight BMI 5 ft 4 in 144 lbs 12.8 oz 24.9 kg/m2 04/02/2016 09:00AM ESTABLISHED PATIENT 45 Height Weight BMI 5 ft 4 in 148 lbs 16 oz 25.6 kg/m2 02/29/2016 03:00PM ESTABLISHED PATIENT 30 Height Weight BMI 5 ft 4 in 151 lbs 16 oz 26.1 kg/m2 01/16/2016 09:00AM ESTABLISHED PATIENT 30 Height Weight BMI 5 ft 4 in 151 lbs 25.9 kg/m2 10/04/2015 11:30AM NEW PATIENT 90 Height Weight BMI Blood Pressure 5 ft 4 in 156 lbs 26.8 kg/m2 120/90 mm[Hg]
--- OUTSIDE RECORDS SUMMARY | 2020-04-20 12:33 | XMS_ITS | Encounter Summary ---
:1975 External Reference #:[id number] Author Reason for Visit None recorded. Assessment and Plan Assessment Note I spent a total of 30 minutes face to face time with this patient and 30 minutes of that time was spent in counseling and coordination of care with that patient as described in the progress note and /or: recommended diagnostic studies Risk factor reduction instructions for treatment and follow-up 1. Vitamin D deficiency ? vitamin D, 25-hydroxy, tot al, serum 2. Hyperlipidemia lipo(a) 45 ? high cholesterol: care ins tructions ? lipid panel, serum 3. Dietary management surveillan ce 4. Calcium deficiency ? calcium, serum or plasma Discussion Note: None recorded. Plan of Care Patient Instructions 1. D-mulsion 4 drops/day retest in 2 months stop 4 days bf test 2. Eusebio/Mg 2:1 2 caps/day 3. Continue fish 1 week and vegetarian 2 xweek- no fried food- potatoe chips, hydrogenat ed processed foods 4. Complete multi 2 cap 2xday with food 5. Active b12 folate 1 tab.day with firs t am serving of multi Reminders Provider Appointments None ? ? recorded. Lab Vitamin D, Tobias roman [place] 25-Hydroxy, Total, 04/13/2020 [facility] Lab Serum ? Lipid Aure rahul [place] Panel, [facility] ? Calcium, [facility] [place] Serum or Plasma 04/13/2020 [facility] Lab Referral None ? ? recorded. Procedures None ? ? recorded. Surgeries None ? ? recorded. Imaging None ? ? recorded. Medications Name Start Date ? ? Jennifer Allergy 180 mg tablet ? Take 1 tablet every week by oral route. baclofen 10 mg tablet ? compounded medication ? Petadolex 1 cap 2x/day Petadolex 2 cap 2x/dY compounded medication ? Pro [place] 2000 1 cap 2xday for 1 month then Pro-omega 1000mg 1 cap 2 xday compounded medication ? Calcium citrate/magnesium 2:1 ratio compounded medication ? Lipotropic Complex 1 cap 2xday compounded medication ? D-mulsion 4 drops /day compounded medication ? B2-400 1 cp every other day B2-400 1 cp every other day compounded medication ? Kailyn 50 -14 1 cap/day for 2 months compounded medication ? D-Hist loading dose for 7 days then 1 cap 2-3 times a day compounded medication ? Mag Taurate 2 cps 2x/dy Mag Taurate 2cp 2x/day cyclobenzaprine 10 mg tablet ? TAKE ONE TABLET BY MOUTH TWICE A DAY NEEDED FOR MU SCLE PAIN cyclobenzaprine 5 mg tablet ? diclofenac potassium 50 mg tablet ? TAKE 1 TABLET BY MOUTH TWICE DAILY NEEDED FOR NECK /SHOULDER PAIN dicloxacillin 250 mg capsule ? ibuprofen 600 mg tablet ? meloxicam 15 mg tablet ? Microgestin 1.5/30 (21) 1.5 mg-30 mcg tablet ? mometasone 50 mcg/actuation nasal spray ? mupirocin 2 % topical ointment ? APPLY TO AFFECTED AREA TWO TIMES A DAY FOR ONE WEEK O R UNTIL RESOLVED neomycin 3.5 mg/g-polymyxin B 10,000 unit/g-dexameth 0 .1 % eye oint ? pimecrolimus 1 % topical cream ? polyethylene glycol 3350 17 gram/dose oral powder ? tretinoin 0.025 % topical cream ? Medications Administered None recorded. Vitals None recorded. Results Lab Results None recorded. Allergies Code Code System Name Reaction Severity Onset Erythromycin Nausea ? 09/11/1991 Dairy Anaphylaxis Mild ? Problems Name Status Onset Date Source ? [...] lable 07/12/2011 Colonoscopy Information not avai lable Vaccine List Vaccine Type DTP 09/10/1981 polio, unspecified formulation 09/11/2015 rubella/mumps 03/13/1992 Td (adult) 09/10/2013 Social History Tobacco Smoking Status Never Smoker Diet CARBOHYDRATE Alcohol intake Occasional Marital status Education 2 Year College Chewing tobacco none Hard of hearing or deaf in one or both ears? 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 N Family History Relation Problem Onset Age of Age Notes Mother Alzheimer's 68 N/A (No Notes) disease Mother Heart disease 50 68 (No Notes) Functional Status Unknown. Past Encounters 01/25/2020 Vitamin D Deficiency; Hyperlipidemia; Di etary Management Surveillance; Calcium Deficiency Ya Ortega, ND: [address] [place] [address], Ph. [phone] 01/13/2020 Hyperlipidemia; Vitamin D Deficiency; Fo lic Acid Deficiency Ya Ortega, ND: [address] [place] [address], Ph. [phone] History of Present Illness Note: was eating alot of fried food- lipid last yr was 125 ldl this 105<div>she started eating fish xweek and vegetarian 2 xweek and her is doing the same- </div><div>she feelsgood on this diet and they have found new recipres- </div><div>
</div>< div>reviewed low normal CAlcium and need for b12- folate- created a vitamin/supplemental support and pt expressed understanding</div><div>
</div><div>compared previous yrs cholesterol- she does have high lip (a)</div> Review of Systems None recorded. Physical Exam ? General Adult Exam Reported By: Patient Constitutional: General Appearance: healthy- appearing, well-nourished, well-developed. Level of Dis tress: NAD. Ambulation: ambulating normally Psychiatric: Insight: good judgement. Men cari Status: active and alert, normal mood, normal affect
== END 2020-04-19 12:28 | disposition home or self-care (01) ==
LOC: LBN 12:27
PROVIDERS: PCP Physician Assistant Medical; Visit Provider Physician Assistant
DX: C43.61 Malignant melanoma of right upper limb, including shoulder (principal); D22.5 Melanocytic nevi of trunk
CPT/HCPCS: 88305

== ENCOUNTER 2020-12-12 01:35 | Outpatient (CLI) | payer BC, SELFPAY ==
--- NOTE | 2020-12-12 07:45 | DI.MAMMO_ITS ---
Exam(s) MAMMO SCREENING EXAM: MAMMO SCREENING CLINICAL HISTORY: SCREENING, HEALTH MAINTENANCE,Z00.8 TECHNIQUE: Mammograms were interpreted according to the usual protocol including computer analysis w [employer] CAD system, tomosynthesis and C-view imaging. COMPARISON: FINDINGS: Breasts are of moderate density with fairly symmetrical distribution of fibroglandular tissue. No do minant mass or clumped microcalcification is identified in either breast. The current examination is compared with previous examinations including November 2018 and there has been no gross interval murray ge in appearance in comparison with the prior studies. IMPRESSION: No specific evidence of malignancy at this time. Routine screening examinations are suggested at yea rly intervals in this age group according to the ACS ACR guidelines. BI-RADS Category 1 - Negative Breast Density - Category B - Scattered areas of fibroglandular density
== END 2020-12-12 01:55 ==
PROVIDERS: PCP Physician Assistant Medical; Visit Provider Physician Assistant Medical
DX: Z12.31 Encounter for screening mammogram for malignant neoplasm of breast (principal)
CPT/HCPCS: 77063; 77067

== ENCOUNTER 2021-05-31 10:46 | Outpatient (CLI) | payer BC, SELFPAY ==
[2021-05-31 10:54] VITALS: BP 136/83; PULSE 102; RESP 20; TEMP 36.9; O2SAT 100
[2021-05-31] MEDS: Omnipaque 240 MG/ML 50 ML BTL IJ (11:18)
[2021-05-31] MEDS: Dexamethasone Sod. Phos./Pres-Free 10 MG/ML VIAL IJ (11:20)
--- NOTE | 2021-05-31 11:20 | DI.RAD_ITS ---
Exam(s) XR PAIN CLINIC CERVICAL SP 2V EXAM: XR PAIN CLINIC CERVICAL SP 2V CLINICAL HISTORY: cervical radiculopathy TECHNIQUE: 2D and realtime digital imaging was performed. Radiologist not present. CONTRAST MATERIAL: None. COMPARISON: No exams were available for comparison FINDINGS: Fluoroscopy was provided for pain management therapy. Please refer to procedure report or details. Cumulative dose: Ka,r=1.38 mGy IMPRESSION: RADIATION DOSE DELIVERED:
[2021-05-31 11:27] VITALS: BP 151/82; PULSE 97; RESP 16; O2SAT 100
--- NOTE | 2021-05-31 12:27 | PDOC.PAIN ---
Pain Clinic Procedure Note Procedure Note Procedure Note: Cervical Epidural Steroid Injection Nancy Carrion has been referred to the [facility] for cervical epidural steroid injection. COMMENTS: I previously evaluated her on 03/07/21. Her last ALEXIS was on 10/14/19. Her pre-procedure pain VAS was 7/10. Dx: cervical radiculopathy Sheyla was interviewed and the medical record reviewed. There were no medical, pharmacologic, radiographic or other structural contraindications to attempting fluoroscopically guided epidural steroid injection. Risks and expected side effects as well as potential benefit of the procedure were reviewed with Sheyla , and Sheyla voiced concerns addressed. The printed consent form was signed and witnessed. Standard time-out procedure was performed. The patient was placed in the prone position on the fluoroscopy table and automated blood pressure cuff and pulse oximeter applied. The skin entry point for entering the epidural space by a midline C7-T1 interlaminar approach was identified under fluoroscopy and marked. Following thorough Chlorhexadine preparation of the skin and draping and 1% lidocaine infiltration of the skin entry point and subcutaneous tissues, an 18 gauge Tuohy needle was placed under fluoroscopic guidance and with loss of resistance technique into the C7-T1 epidural space. Upon needle placement and loss of resistance there were no paresthesiae or return of blood or CSF through the needle. 1 cc of Omnipaque 240 was injected with clear epidural spread in the A/P, lateral and oblique views. 10 mg of preservative free Dexomethasone was injected with no unusual discomfort expressed by Sheyla. This was flushed with 1 cc of normal saline. Sheyla Coronas vital signs were stable throughout the procedure and were as recorded in the docflowsheet by the nursing staff. Follow up plans and appointments were discussed with the Sheyla. Post procedure instruction was given as documented in nursing documentation and having met discharge criteria, Sheyla was discharged from the Pain Management Center. COMMENTS: Post-procedure pain VAS was 5/10. If this procedure is helpful, it can be completed up to 3 times per 12 months. Checo Rolle DO, MPH [facility]-Pain Management [facility]-Center for [facility] Management CC: Romel Hawkins
== END 2021-05-31 10:47 | disposition home or self-care (01) ==
PROVIDERS: PCP Physician Assistant Medical; Visit Provider Preventive Medicine Occupational Medicine
DX: M54.12 Radiculopathy, cervical region (principal)
CPT/HCPCS: 62321; 72040; Q9967

== ENCOUNTER 2021-10-17 10:00 | Outpatient (CLI) | payer BC, SELFPAY ==
--- NOTE | 2021-10-17 06:00 | DI.RAD_ITS ---
Exam(s) XR PAIN CLINIC CERVICAL SP 2V EXAM: XR PAIN CLINIC CERVICAL SP 2V CLINICAL HISTORY: Dx: Cervical Radiculopathy TECHNIQUE: 2D and realtime digital imaging was performed. CONTRAST MATERIAL: Refer to procedure report. COMPARISON: No exams were available for comparison FINDINGS: Fluoroscopy was provided for Dr. Rolle during the performance of a cervical epidural steroid injectio n. Please refer to the procedure report for complete details. Ka,r=1.8 mGy IMPRESSION:
[2021-10-17 10:23] VITALS: BP 132/87; PULSE 74; RESP 16; TEMP 36.6; O2SAT 100
[2021-10-17] MEDS: Midazolam 2 MG/2 ML VIAL IVP (10:57)
[2021-10-17] MEDS: Lactated Ringers 500 ML 80 ML IV (10:58)
[2021-10-17 11:03] VITALS: BP 137/91; PULSE 82; PULSE 83; RESP 19; RESP 23; O2SAT 100
[2021-10-17] MEDS: Dexamethasone Sod. Phos./Pres-Free 10 MG/ML VIAL IJ (11:06)
[2021-10-17] MEDS: Omnipaque 240 MG/ML 50 ML BTL IJ (11:06)
--- NOTE | 2021-10-17 11:15 | PDOC.PAIN ---
Pain Clinic Procedure Note Procedure Note Procedure Note: Cervical Epidural Steroid Injection Nancy Carrion has been referred to the [facility] for cervical epidural steroid injection. COMMENTS: She was previously evaluated in the office. She had this procedure on 05/31/21 and did exceedingly well for 3 months. Her arm pain is returning. Her pre-procedure pain VAS is 7/10. Dx: cervical radiculopathy Sheyla was interviewed and the medical record reviewed. There were no medical, pharmacologic, radiographic or other structural contraindications to attempting fluoroscopically guided epidural steroid injection. Risks and expected side effects as well as potential benefit of the procedure were reviewed with Sheyla , and Sheyla voiced concerns addressed. The printed consent form was signed and witnessed. Standard time-out procedure was performed. The patient was placed in the prone position on the fluoroscopy table and automated blood pressure cuff and pulse oximeter applied. The skin entry point for entering the epidural space by a midline C7-T1 interlaminar approach was identified under fluoroscopy and marked. Following thorough Chlorhexadine preparation of the skin and draping and 1% lidocaine infiltration of the skin entry point and subcutaneous tissues, an 18 gauge Tuohy needle was placed under fluoroscopic guidance and with loss of resistance technique into the C7-T1 epidural space. Upon needle placement and loss of resistance there were no paresthesiae or return of blood or CSF through the needle. 1 cc of Omnipaque 240 was injected with clear epidural spread in the A/P, lateral and oblique views. 10 mg of preservative free Dexomethasone was injected with no unusual discomfort expressed by Sheyla. This was flushed with 1 cc of normal saline. Sheyla 's vital signs were stable throughout the procedure and were as recorded in the docflowsheet by the nursing staff. Follow up plans and appointments were discussed with the Sheyla. Post procedure instruction was given as documented in nursing documentation and having met discharge criteria, Sheyla was discharged from the Pain Management Center. COMMENTS: Post-procedure pain VAS was 0/10. Checo Rolle DO, MPH [facility]-Pain Management [facility] CC: Romel Hawkins
== END 2021-10-17 10:01 | disposition home or self-care (01) ==
LOC: PC 10:00
PROVIDERS: PCP Physician Assistant Medical; Visit Provider Preventive Medicine Occupational Medicine
DX: M54.12 Radiculopathy, cervical region (principal)
CPT/HCPCS: 62321; 72040; J2250; Q9967

== ENCOUNTER 2021-12-13 02:56 | Outpatient (CLI) | payer BC, SELFPAY ==
[2021-12-13 07:59] LABS: Abs Immature Grans 0.01 10^3/uL (0.0-0.06); Absolute Basophil Count 0.06 10^3/uL (0.0-0.2); Absolute Eosinophil Count 0.13 10^3/uL (0.0-0.7); Absolute Lymphocyte Count 1.77 10^3/uL (1.2-3.4); Basophils % 1.3; Eosinophils % 2.7; HCT 38.1 % (36.0-46.0); Immature Grans % 0.2; Lymphocytes % 37.1; MCH 31.6 pg (27.0-33.0); MCHC 34.1 % (32.0-36.0); MCV 93 fL (80-95); MPV 8.9 fL (8.0-11.0); Monocytes % 8.4; Neutrophils % 50.3; Platelet Count 330 10^3/uL (130-400); RBC 4.11 10^6/uL (3.93-5.22); RDW 11.2 % (11.7-14.6); RDW-SD 37.7 fL; WBC 4.77 10^3/uL (4.4-10.8)
[2021-12-13 08:08] LABS: Hemoglobin A1C 5.4 % (<5.7)
[2021-12-13 09:11] LABS: Vitamin D 25 Total 45.3 ng/mL (30-100)
[2021-12-13 09:17] LABS: ALT 16 U/L (14-59); AST 18 U/L (15-37); Alkaline Phosphatase 51 U/L (46-116); BUN 15 mg/dL (7-18); Bilirubin, Total 0.4 mg/dL (0.2-1.0); CREATININE 0.8 mg/dL (0.55-1.02); Calcium 9.1 mg/dL (8.5-10.1); Calculated LDL 123 mg/dL (<100); Chloride 106 mmol/L (98-107); Cholesterol 198 mg/dL (<200); Estimated GFR 92.54 (mL/min/1.73m2); Folate 13.2 ng/mL (8.6-20.0); Glucose 90 mg/dL (74-106); HDL Cholesterol 64 mg/dL (40-60); Potassium 4.1 mmol/L (3.5-5.1); Sodium 141 mmol/L (136-145); Total Protein 7.7 g/dL (6.4-8.2); Triglyceride 55 mg/dL (<150); Vitamin B12 451 pg/mL (193-986)
[2021-12-14 07:54] LABS: Homocysteine 11.1 umol/L (5.0-13.9)
[2021-12-20 17:31] LABS: Histamine Plasma 0.85 ng/mL (0-1.0)
== END 2021-12-13 02:57 | disposition home or self-care (01) ==
LOC: LBO 02:56
PROVIDERS: Naturopath; PCP Physician Assistant Medical; Visit Provider Physician Assistant Medical
DX: E55.9 Vitamin D deficiency, unspecified (principal); L50.8 Other urticaria; R53.83 Other fatigue; E78.5 Hyperlipidemia, unspecified
CPT/HCPCS: 36415; 80053; 80061; 82306; 83090; 82607; 82746; 83036; 83088; 85025

== ENCOUNTER 2022-02-22 16:17 | Outpatient (REF) | payer BC, SELFPAY ==
--- NOTE | 2022-02-22 15:40 | PAPFT_PTH ---
PATIENT: Nancy Carrion LOC: NCN #:[id number] AGE/SX: 46/F ROOM: RE02/22/[address]: Romel Hawkins : 1975 BED: DIS: 02/22/2022 SPEC #: [id number] RECD: 02/25/22 12:54 STATUS: JEANINE RELeobardo #: [id number] ASIF: 02/22/22 15:[address]: Romel Hawkins DEPT: [facility] Cytology RECD BY: Diana Garcia Tissues: 1 - CX/ENDOCX FOR PAP SMEARS Procedures: PAP THIN PREP/UVM Screening HPV DNA PROBE Comments: [id number]
== END 2022-02-22 16:18 | disposition home or self-care (01) ==
LOC: NCHCN 16:17
PROVIDERS: PCP Physician Assistant Medical; Visit Provider Physician Assistant Medical
DX: Z12.4 Encounter for screening for malignant neoplasm of cervix (principal); Z11.51 Encounter for screening for human papillomavirus (HPV)
CPT/HCPCS: 88142; 87624

== ENCOUNTER 2022-04-16 19:58 | Emergency (ER) | payer BC, SELFPAY ==
[2022-04-16 20:01] VITALS: BP 158/93; PULSE 76; RESP 16; TEMP 36.5; O2SAT 99
--- OUTSIDE RECORDS SUMMARY | 2022-04-16 20:05 | XMS_ITS ---
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 047257001 Problem Skin lesion L98.9 Active 38189186 Problem Muscle pain M79.10 Active 40348818 Problem Eczematous dermatitis L30.9 Active 871633443 Problem Melanoma of right upper arm C43.61 Active Problem Shoulder pain, right M25.511 Active 124405619 Problem Food allergy Z91.018 Active 457620906 Problem Hemorrhoids, external K64.4 Active 05437478 Problem Allergic rhinitis J30.9 Active 522517 04 Problem Herpes, genital A60.00 Active 60458625 Problem GERD (gastroesophageal reflux disease) K21.9 Active 013908288 Problem Migraine G43.909 Active 09436816 ALLERGIES Substance Reaction Event Type Date Status Coriander Unknown Drug Allergy Apr, Active Dicloxacillin Sodium Unknown Drug Allergy Apr, Active Erythromycin Unknown Drug Allergy Apr, Active Nasonex Unknown Drug Allergy Apr, Active scottish cheese Unknown Non Drug Allergy Apr, A ctive Yellow #5 Unknown Non Drug Allergy Apr, Active rooibos tea Unknown Non Drug Allergy Apr, Activ e chard Unknown Non Drug Allergy Apr, Active Wheat Dextrin Unknown Drug Allergy Apr, Active zucchini Unknown Non Drug Allergy Apr, Active spelt Unknown Non Drug Allergy Apr, Active Pineapple Extract Unknown Drug Allergy Apr, Act italo barley Unknown Non Drug Allergy Apr, Active Rice (Diagnostic) Unknown Drug Allergy Apr, Act italo tumeric Unknown Non Drug Allergy Apr, Active cardamom Unknown Non Drug Allergy Apr, Active Yeast-related Products Unknown Drug Allergy Apr, Active Brussel Sprouts Unknown Drug Allergy Apr, Activ e date Unknown Non Drug Allergy Apr, Active FD&C Blue #1 Unknown Non Drug Allergy Apr, Acti ve halibut Unknown Non Drug Allergy Apr, Active grape Unknown Non Drug Allergy Apr, Active hazelnut Unknown Non Drug Allergy Apr, Active walnut Unknown Non Drug Allergy Apr, Active Robitussin 12 Hour Cough Unknown Drug Allergy Apr, 023 Active ENCOUNTERS Encounter Location Date Diagnosis [facility] [address] [place], [place] [id number] Apr, Postnasal drip R09.82 and Chronic rhinitis J31.0 [facility] [address] [employer], [address] [place], [place] [id number] Mar, [facility] [address] [place], [place] [id number] Apr, [facility] [address] [place], [place] [id number] Apr, Neoplasm of unspecified behavior of bone, soft tissue, and skin D49.2 [facility] [address] [place], [place] [id number] Apr, [facility] [address] [place], [place] [id number] Mar, Telangiectasia 448.9 IMMUNIZATIONS No Known Immunizations SOCIAL HISTORY Qualifiers Date Never Smoker REASON FOR REFERRAL FUNCTIONAL STATUS PLAN OF CARE Activity Details VITAL SIGNS Height 64 in 2022-04-12 Height 64 in 2020-04-19 Height 64 in 2013-04-02 Weight 146 lbs 2022-04-12 Weight 154 lbs 2020-04-19 Weight 150 lbs 2013-04-02 Heart Rate 87 /min 2022-04-12 Heart Rate 87 /min 2013-04-02 Oximetry 99 2022-04-12 BMI 25.06 kg/m2 2022-04-12 BMI 26.43 kg/m2 2020-04-19 BMI 25.74 kg/m2 2013-04-02 Blood pressure systolic 110 mm Hg Blood pressure diastolic 70 mm Hg 2022-04 MEDICATIONS Medication Instructions Dosage Frequency Start Date End Date Duration Status Vitamin C 1000 MG Orally Once a day 1 tablet 24h 30 day(s) Active Melatonin 3 MG Orally Once a day 1 tablet at bedtime as needed 24h 30 day(s) Active Multivitamin Not -Taki ng Probiotic - as directed Active Eusebio/Mag Citrate 250-125 MG Orally Once a day 4 tablets with a meal 24h 30 day(s) Active Vitamin A 2400 MCG (8000 UT) Orally Once a day 1 capsule with food or milk 24h 30 day(s) Active Cholecalciferol 25 MCG (1000 UT) Orally Once a day 1 capsule 24h 30 day(s) Active PROCEDURES Procedure Date Ordered Result Body Site SHAVE TRUNK/EXT 0.6-1.0CM April 19, 2020 SHAVE TRUNK/EXT <.5CM April 19, 2020 RESULTS Name Result Date Reference Range SURGICAL PATH 2020-05-29 SURGICAL PATH 2020-04-19 REASON FOR VISIT Environmental, ENT Allergy Consult, chart prep, ENT BED AND BREAKFAST COOK skin lesion, Chart preload, BDu-Iwvjlyg-Ixyya-Facial. This is a 37 y/o female consult. She is concerned about the area located below the left eye. She first noticed them about five years ago. She denies any trauma. There is no pain or discomfort associated with the area. Insurance Providers Health Insurance Type Health Plan Insurance Address Health Plan Insurance Phone Health Plan Insurance Name Health Plan Coverage Dates Member ID Patient Relationship to Subscriber Patient Address Patient Phone Patient Name Patient Date of Subscriber ID Subscriber Name Subscriber Date of Group No [place] [address] [place] [address] [place] self Nancy Carrion 1975 [id number] [facility] - DO NOT BILL (Write Off) [address] [facility] [address] [facility] - DO NOT BILL (Write Off) self Nancy Carrion [id number]
--- NOTE | 2022-04-16 20:34 | ED.GENADUL_ITS ---
Discharge Plan Disposition Patient Disposition: Home Condition: Stable Discharge Details Clinical Impression: Hordeolum externum of right lower eyelid Primary Care Provider: Romel Hawkins ED Provider: Brittny Piedra Home Meds and New Rx's Prescriptions: Continued meloxicam 15 mg tablet 15 mg PO DAILY PRN (Reason: neck pain) 30 Days Qty: 30 5RF Rx Instructions: Take with food. cholecalciferol (vitamin D3) 25 mcg (1,000 unit) Tablet 25 mcg PO DAILY Probiotic-Digestive Enzymes 5-250 mg Capsule 1 cap PO DAILY dietary supplement Capsule See Rx Instructions .ROUTE .COMPLEX Rx Instructions: HistaEze. 1 cap BID ascorbic acid (vitamin C) 1,000 mg tablet 1 g PO DAILY vitamin A 2,400 mcg capsule 2,400 mcg PO DAILY cyclobenzaprine 10 mg tablet 10 mg PO BID calcium-magnesium 300-300 mg Tablet 1 tab PO BID Discharge Instructions Instructions: Veronica (ED) Additional Instructions: Continue to use warm compresses to your eye up to 3 times daily. Wash your hands before placing the antibiotic in your eye. Take the antibiotics up to 3 times daily for the next 5 to 7 days. Follow up with primary care provider in 3-5 days. Return to ED sooner if any worsening or concerns. Increase oral fluids. If it continues to get worse please follow-up with your valving machine operator or [facility] eye care. Please take Tylenol or Ibuprofen with food every 4-6 hours as needed for pain and swelling. Referrals: Romel Hawkins PA [Primary Care Provider] - 1 week Medical Decision Making 47-year-old female presents to the ER with a chief complaint of right lower eyelid swelling and tenderness which began approximately 3 days ago. No drainage no scleral injection. No itching. She started putting warm compresses on it today and noted no improvement. She denies any visual disturbances or any other associated symptoms. Hordeolum versus blepharitis. We will give patient bacitracin polymyxin eye ointment. This text was generated using infoBizzation system, please disregard any oddities of phrase or misspellings. HPI General Mode of arrival: ambulatory . Date/Time Provider Initiated Documentation: 04/16/22 20:00 . Limitations to Documentation: no limitations . Information obtained by: patient, RN notes reviewed and old records reviewed . HPI Narrative: 47-year-old female presents to the ER with a chief complaint of right lower eyelid swelling and tenderness which began approximately 3 days ago. No ceasar inage no scleral injection. No itching. She started putting warm compresses on it today and noted no improvement. She denies any visual disturbances or any other associated symptoms. Related Data Home Medications Medication Instructions Recorded Confirmed calcium-magnesium 300 mg-300 mg 1 tab PO BID 01/08/18 04/16/22 tablet L. acidophilus 5 mg-digestive 1 cap PO DAILY 07/23/19 04/16/22 enzymes combo no.5 250 mg capsule (Probiotic-Digestive Enzymes) cholecalciferol (vitamin D3) 25 25 mcg PO DAILY 07/23/19 04/16/22 mcg (1,000 unit) tablet dietary supplement See Rx Instructions .Route .COMPLEX 07/26/19 04/16/22 meloxicam 15 mg tablet 15 mg PO DAILY PRN neck pain 30 09/22/19 04/16/22 days #30 tabs ascorbic acid (vitamin C) 1,000 mg 1 g PO DAILY 02/23/21 04/16/22 tablet cyclobenzaprine 10 mg tablet 10 mg PO BID 02/23/21 04/16/22 vitamin A 2,400 mcg capsule 2,400 mcg PO DAILY 02/23/21 04/16/22 Previous Rx's Medication Instructions Recorded meloxicam 15 mg tablet 15 mg PO DAILY PRN neck pain 30 09/22/19 days #30 tabs Allergies Allergy/AdvReac Type Severity Reaction Status Date / Time mometasone furoate Allergy Mild Unverified 10/17/21 10:21 [From Nasonex] chlorhexidine AdvReac Severe felt like Verified 10/17/21 10:21 my foot was on fire erythromycin base AdvReac Severe vomiting Verified 10/17/21 10:21 dicloxacillin AdvReac Mild vomiting, Verified 10/17/21 10:21 dizzy, perspiration General Stated Complaint: EyeProblem SHARMIN: 5 Review of Systems Eyes Eyes: Reports as per HPI, Denies eye discharge, Denies itchy eyes and Reports other (Lower eyelid swelling on the right) Allergic/Immunologic Allergic/Immunologic: Denies itchy eyes PFSH All Active Problems (Updated 04/16/22 @ 20:38 by Brittny Piedra NP) Hordeolum externum of right lower eyelid (Acute) Cervical radiculitis (Acute) Tendonitis of left rotator cuff (Acute) Injected 06/24/2018 Right rotator cuff tendinitis (Acute) Corticosteroid injection: 03/30/18 Family history of malignant neoplasm of colon in first degree relative diagnosed when younger than 60 years of age (Acute) Hemorrhoids (Acute) Medical History Acute pharyngitis Allergic rhinitis Eczematous dermatitis Encounter for Papanicolaou smear of cervix GERD (gastroesophageal reflux disease) Health maintenance examination Herpes, genital Internal hemorrhoids Melanoma right arm Menstrual irregularity Migraine Multiple food allergies Muscle pain Otalgia, right ear Seasonal allergies Shoulder pain, right Surgical History Colonoscopy planned (~01/08/18) H/O colonoscopy (~2004) History of bunionectomy of both great toes Family History Father Colon cancer Brother Colon cancer Mother Heart disease Social History Smoking/Tobacco Use Status: Never Smoking risk assessment performed?: Yes Alcohol Intake: current Alcohol Intake frequency: holidays/special occasions only Alcohol type: wine Drug use: Never Substance use type: does not use Household members: spouse Housing: house Number of Children: 2 number of grandchildren: 2 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 Erythema and swelling 2. Swelling Course Vital Signs Vital signs: Vital Signs Temperature 36.5 C 04/16/22 20:01 Pulse 76 04/16/22 20:01 Respiratory Rate 16 04/16/22 20:01 Blood Pressure 158/93 H 04/16/22 20:01 Pulse Oximetry 99 04/16/22 20:01 Temperature 36.5 C 04/16/22 20:01 Temperature Source Temporal Artery Scan 04/16/22 20:01 Pulse 76 04/16/22 20:01 Respiratory Rate 16 04/16/22 20:01 Respiratory Effort Normal, Non-Labored 04/16/22 20:09 Blood Pressure 158/93 H 04/16/22 20:01 Blood Pressure Position Sitting 04/16/22 20:01 Pulse Oximetry 99 04/16/22 20:01 Oxygen Delivery Method Room Air 04/16/22 20:01 Oxygen Flow Rate 0 04/16/22 20:01 Pain Level 6 04/16/22 20:01 PAWSS Have you Been Recently Intoxicated or Drunk Within the Last 30 days?: No Have you Ever Experienced Previous Episodes of Alcohol Withdrawal?: No Have you ever Experienced Withdrawal Seizures?: No Have you ever Experienced Delirium Tremens(DT)s?: No Have you ever undergone Alcohol Rehabilitation Treatment (i.e, inpt ot outpatient treatment programs)?: No Have you ever Experienced Blackouts?: No Have you ever Combined Alcohol with other Downers within the last 90 days?: No Have you ever Combined Alcohol with any other Substance of Abuse during the last 90 days?: No Positive Blood Alcohol level on Presentation? [PCS.BAL]: No Evidence of Increased Autonomic Activity (i.e. HR>120, tremor, sweating, agitation, nausea)?: No Result: 0
== END 2022-04-16 21:07 | disposition home or self-care (01) ==
PROVIDERS: Emergency Provider Registered Nurse Emergency; PCP Physician Assistant Medical
DX: H00.012 Hordeolum externum right lower eyelid (principal)
CPT/HCPCS: 99282; 99283

== ENCOUNTER 2022-09-04 07:44 | Outpatient (CLI) | payer BC, SELFPAY ==
[2022-09-04 07:51] VITALS: BP 125/87; PULSE 66; RESP 20; TEMP 36.8; O2SAT 98
[2022-09-04] MEDS: methylPREDNISolone ACETATE 40 MG/ML VIAL IJ (08:20)
[2022-09-04 08:28] VITALS: PULSE 85; O2SAT 98
[2022-09-04 08:31] VITALS: BP 179/104; PULSE 92
[2022-09-04 08:33] VITALS: PULSE 79; O2SAT 97
[2022-09-04] MEDS: Lidocaine 2% Pres-Free 5 ML VIAL IJ (09:29)
--- NOTE | 2022-09-04 14:38 | PDOC.PAIN ---
Date of service: 09/04/22 Time of Service: 08:40 Pain Managment Procedure Note Procedure Note Procedure Note: ULTRASOUND GUIDED RIGHT Rhomboid, Trapezius, and thoracic paraspinal muscle trigger point INJECTIONS Pre-Procedural Evaluation: Nancy Carrion has been referred to the Pain Management Center for an Ultrasound Guided right trapezius, thoracic paraspinous, and rhomboid injection for a chief complaint of right upper back pain. Pre-procedure Pain Score: 5/10 Patient was interviewed and the medical record reviewed. There were no medical, pharmacologic, radiographic, or other structural contraindications to preforming an ultrasound guided injection. Risks and expected side effects as well as potential benefits of the procedure were reviewed. The patient consent form was signed and witnessed. Standard time-out procedure was performed. The use of direct ultrasound visualization of the needle (rather than a non-guided injection) was required to increase patient safety by excluding inadvertent intramuscular, intratendinous, or intraneural needle placement and minimizing bleeding by avoiding osteochondral or vascular injury from the needle. Additionally, the increased accuracy of placement may increase clinical effectiveness and will allow higher diagnostic specificity when evaluating effectiveness of this injection. Procedure Description: The patient was placed in the Prone position and automated blood pressure cuff and pulse oximeter applied for monitoring during the procedure and recorded in the medical record. Pre-injection ultrasound scanning of the area of interest was performed using the linear transducer, identifying relevant anatomy, landmarks, and neurovascular structures allowing for optimal needle path. The site was then prepared in the usual sterile fashion, using thorough Chlorhexadine preparation of the skin and sterile draping. The same ultrasound transducer was then passed into the sterile field using sterile probe cover and sterile ultrasound gel. The injection target was again visualized. Skin and subcutaneous tissues were anesthetized with NUMBERS mL of 1% Lidocaine. A 22G 3.5 Pajunk Ultrasound needle was placed under live ultrasound guidance, using an in-plane approach, to the target area. After visualization of the needle tip at the target area, a mixture of 2 cc of 1% Licodaine followed by 0.25 cc of Depomedrol (40 mg/cc) and this was followed by 1 cc of 1% Lidocaine was delivered after negative aspiration for blood. I made 12 passes through each muscle. Ultrasound images were captured and stored for documentation purposes. Post-procedure Pain Score:1/10 Vital signs were stable throughout the procedure and were as recorded in the docflowsheet by the nursing staff. Follow up plans and appointments were discussed with the patient.Post procedure instruction was given as documented in nursing documentation and having met discharge criteria, they were discharged from the Pain Management Center. COMMENTS: She did very well with this procedure. Checo Rolle DO, MPH [facility]-Pain Management [facility]-Center for Pain Management
== END 2022-09-04 07:45 | disposition home or self-care (01) ==
LOC: PC 07:44
PROVIDERS: PCP Physician Assistant Medical; Visit Provider Preventive Medicine Occupational Medicine
DX: M54.6 Pain in thoracic spine (principal)
CPT/HCPCS: 20553; J1030

== ENCOUNTER 2022-11-08 07:14 | Day surgery (SDC) | payer BC, SELFPAY ==
--- NOTE | 2022-11-07 21:35 | W.COLOREPORT ---
Date of service: 11/08/22 Time of Service: 08:54 Colonoscopy Report Date of procedure: 11/08/22 Pre-op diagnosis general: Family history of colorectal cancer in 2 first-degree relatives/possible he Post-op diagnosis procedure note: other (normal ) Surgeon: Patsy Ornelas Anesthesia Type: General:No Airway Estimated blood loss (mL): 0 Pathology: none sent Complications: None Disposition: same day Prep: Miralax/Dulcolax Retraction Time: 8 Procedure Description: After informed consent was obtained the patient was taken to the procedure room and placed in a left decubitous position. Monitors were applied and a time out was done. The patients name, date of , procedure, allergies to medications and metal in their body was reviewed. The patient was then sedated. Once sedated and comfortable a rectal exam was done. External exam was normal. Internal exam revealed a normal sphincter tone and no palpable masses. The scope was then introduced and retrofelexed. No internal hemorrhoids were identified. The scope was then advanced to the cecum without difficulty. The TI and appendiceal orifice were identified. The prep was BBPS 3 in all segments for a total of 9 The scope was then slowly retracted over 8 minutes back into the rectum. there are no polyps, AVMs, or diverticula visualized today. The mucosa is pink and healthy with a normal vascular pattern. The scope was removed and the patient was woken up and taken back to Same day surgery in stable condition. The patient tolerated the procedure well and there were no immediate complications. Follow up: The patient should follow up in 5 years unless they develop changes in bowel habits or other new gastrointestinal complaints.
--- NOTE | 2022-11-07 21:36 | PDOC.DSDIS_ITS ---
Date of service: 11/08/22 Time of Service: 09:01 Discharge Plan Disposition Patient Disposition: Home Condition: Good Discharge Details Reason For Visit: Colon cancer screening Attending Provider: Patsy Ornelas Primary Care Provider: Romel Hawkins Home Meds and New Rx's Prescriptions: Continued cholecalciferol (vitamin D3) 25 mcg (1,000 unit) Tablet 25 mcg PO DAILY Probiotic-Digestive Enzymes 5-250 mg Capsule 1 cap PO DAILY dietary supplement Capsule See Rx Instructions .ROUTE .COMPLEX Rx Instructions: HistaEze. 1 cap BID ascorbic acid (vitamin C) 1,000 mg tablet 1 g PO DAILY vitamin A 2,400 mcg capsule 2,400 mcg PO DAILY cyclobenzaprine 10 mg tablet 10 mg PO BID PRN diclofenac potassium 50 mg tablet 50 mg PO DAILY melatonin 3 mg capsule 5 mg PO HS PRN gabapentin 100 mg Tablet 100 mg PO BID calcium-magnesium 300-300 mg Tablet 1 tab PO BID Discontinued polyethylene glycol 3350 17 gram/dose powder 238 g PO ONCE Qty: 238 0RF Rx Instructions: take per colonoscopy instructions bisacodyl [Dulcolax (bisacodyl)] 5 mg tablet,delayed release (DR/EC) 5 mg PO ONCE Qty: 4 0RF Rx Instructions: take per colonoscopy instructions Discharge Instructions Additional Instructions: [facility] Colonoscopy Post- Op Instructions Instructions for Everyone who is given Anesthesia: For your safety, please do the following for the next twenty-four (24) hours: *Do Not operate a motor vehicle (car, truck, motorcycle, etc.) *Do Not drink alcoholic beverages or use any recreational drugs for the first 24 hours or while taking pain medications. The medications in your body may have a reaction that can be dangerous. *Do Not make any important decisions or sign any important papers. Findings: Normal Follow up: repeat in 5 years time Of course, you should continue to have a yearly physical exam including a rectal exam. If you should ever notice any pain or difficulty having a bowel movement, blood in the stool, unexplained weight loss, or change in your bowel habits, please contact your health provider 1. No lifting over 20 pounds or strenuous activity for the first 24 hours after your procedure. After 24 hours there are no restrictions on your activity but you may feel fatigued for a few days. 2. After you arrive home you may have a light meal and return to your normal diet as you can tolerate it without feeling sick to your stomach. 3. You may have a bloated, gaseous feeling in your belly (abdomen) after a colonoscopy. Passing gas and belching will help. Walking or lying down on your left side with your knees flexed may relieve the discomfort. Call the office at [phone] (Office) or [phone] (Hospital) right away if you notice any of the following: a.Vomiting of blood or ?coffee ground stools?. b.Rectal bleeding 1Tbsp, blood clots or continuous bleeding. c.Severe belly (abdominal) pain. d.A hard distended belly (abdomen) and an inability to pass gas. 4. Please don?t expect to have a normal BM (bowel movement) for 2-3 days after your procedure. 5. If there are questions regarding the findings of your procedure, please contact your doctor 6. If you are unable to contact your doctor with a problem, contact the hospital at [phone]. 7. Continue all your regular medications unless directed otherwise. I understand the above instructions and have no questions. Signature of Patient or Adult Escort Name of Responsible Adult Escort Signature of Nurse Date/Time Activity:: See above Diet:: See above DS: Diagnosis Discharge Diagnosis (1) Family history of malignant neoplasm of colon in first degree relative diagnosed when younger than 60 years of age: Status: Acute Asessment and Plan: The patient is seen and examined after their colonoscopy.? The patient has been able to pass gas.? They are not having abdominal pain.? They have been able to tolerate liquids and a snack.? They do not have any nausea or vomiting.? They are not having any chest pain or shortness of breath.??? They are not having any rectal bleeding. Their vital signs have been stable-see nursing notes. We discussed findings during their colonoscopy, and any biopsies that were do ne/polyps that were removed. The patient will be sent a letter with any biopsy results, and when to repeat the colonoscopy.-see discharge instructions. Patient was given explicit instructions to follow-up regarding colonoscopy-refer to discharge instructions.? We reviewed resumption of medications. Patient verbalized understanding and discharged in stable and satisfactory condition- See nursing notes. (2) Hemorrhoids: Status: Acute (3) GERD (gastroesophageal reflux disease):
[2022-11-08 07:39] VITALS: BP 132/94; PULSE 86; RESP 22; TEMP 36.6; O2SAT 99
--- NOTE | 2022-11-08 08:00 | ANES.PREOP_ITS ---
General Info Date of Service Date Performed: 11/08/22 Height: 5 ft 4 in Weight: 67.5 kg Body Mass Index (BMI): 25.5 Surgical Procedure: Operation Date: 11/08/22 08:25 Proposed Procedure Side Surgeon p Colonoscopy Patsy Ornelas DO s Possible Internal Hemorrhoid Banding Patsy Ornelas DO Meds Allergies and Home Medications Allergies Allergy/AdvReac Type Severity Reaction Status Date / Time mometasone furoate Allergy Mild Unverified 11/08/22 07:30 [From Nasonex] chlorhexidine AdvReac Severe felt like Verified 11/08/22 07:30 my foot was on fire erythromycin base AdvReac Severe vomiting Verified 11/08/22 07:30 dicloxacillin AdvReac Mild vomiting, Verified 11/08/22 07:30 dizzy, perspiration Home Medication Medication Instructions Recorded calcium-magnesium 300 mg-300 mg 1 tab PO BID 01/08/18 tablet L. acidophilus 5 mg-digestive 1 cap PO DAILY 07/23/19 enzymes combo no.5 250 mg capsule (Probiotic-Digestive Enzymes) cholecalciferol (vitamin D3) 25 25 mcg PO DAILY 07/23/19 mcg (1,000 unit) tablet dietary supplement See Rx Instructions .Route .COMPLEX 07/26/19 ascorbic acid (vitamin C) 1,000 mg 1 g PO DAILY 02/23/21 tablet vitamin A 2,400 mcg capsule 2,400 mcg PO DAILY 02/23/21 diclofenac potassium 50 mg tablet 50 mg PO DAILY 07/17/22 melatonin 3 mg capsule 5 mg PO HS PRN 07/17/22 cyclobenzaprine 10 mg tablet 10 mg PO BID PRN 10/17/22 gabapentin 100 mg tablet 100 mg PO BID 11/07/22 Current Visit Medications: Current Medications Generic Name Dose Route Start Last Admin Trade Name Freq PRN Reason Stop Dose Admin Hyoscyamine Sulfate 0.125 mg 11/08/22 04:20 Hyoscyamine 0.125 Mg Sl/Oral/Chew SL 12/08/22 04:19 DIRECTED PRN Ringer's Solution 1,000 mls @ 80 mls/hr 11/08/22 06:00 IV 11/08/22 23:59 INFUSION ANN IV Miscellaneous Supplies 1 each 11/08/22 06:00 Iv Access IV 11/08/22 23:59 DIRECTED [facility] Ondansetron HCl 4 mg 11/08/22 04:20 Ondansetron 4 Mg/2 Ml Vial IVP 12/08/22 04:19 Q4H PRN PRN Nausea / Vomiting Sodium Chloride 0 ml 11/08/22 06:00 Normal Saline Flush 10 Ml Syr IV 11/08/22 23:59 PRN PRN Sodium Chloride 0 ml 11/08/22 06:00 Normal Saline 10 Ml Vial IJ 11/08/22 23:59 DIRECTED PRN Sterile Water 0 ml 11/08/22 06:00 Water,Injection,Sterile 10 Ml Vial IJ 11/08/22 23:59 DIRECTED PRN PFSH Active Problems Active Problems: Problem Status Onset Code History of melanoma Z85.820 Cervical radiculitis M54.12 Tendonitis of left rotator cuff M75.82 Right rotator cuff tendinitis M75.81 Family history of malignant neoplasm of colon in first degree relative diagnosed when younger than 60 years of age Z80.0 Hemorrhoids K64.9 Medical History Medical History Acute pharyngitis Allergic rhinitis Eczematous dermatitis Encounter for Papanicolaou smear of cervix GERD (gastroesophageal reflux disease) Health maintenance examination Herpes, genital Internal hemorrhoids Melanoma right arm Menstrual irregularity Migraine Multiple food allergies Muscle pain Otalgia, right ear Seasonal allergies Shoulder pain, right Surgical History Surgical History Colonoscopy planned (~01/08/18) H/O colonoscopy (~2004) History of bunionectomy of both great toes History of melanoma excision (~05/2020) Right upper arm with one lymph node removed Tobacco Smoking/Tobacco Use Status: Never Alcohol Alcohol Intake: current Alcohol intake frequency: holidays/special occasions only Alcohol type: wine Substance Use Substance use: Never Substance use type: does not use Details: alcohol t-14 Vital Signs and Lab Results Vital Signs Most Recent Vital Signs in EMR: Most Recent Vital Signs Temp Pulse Resp BP Pulse Ox 36.6 C 86 22 132/94 H 99 11/08/22 07:39 11/08/22 07:39 11/08/22 07:39 11/08/22 07:39 11/08/22 07:39 Lab Results Blood Type / Crossmatch: No Data to Display Complete Blood Count: No Data to Display Complete Metabolic Panel: No Data to Display Liver Function Panel: No Data to Display Coagulation Panel: No Data to Display Cardiac Panel: No Data to Display Arterial Blood Gas: No Data to Display Venous Blood Gas: No Data to Display Pancreas Panel: No Data to Display Thyroid Panel: No Data to Display Infectious Disease: No Data to Display Blood Cultures: No Data to Display Toxicology Panel: No Data to Display Panel: No Data to Display Anesthesia Assessment and Plan Anesthesia History Personal History: No History of Anesthesia Complications Family History: No Family History of Anesthesia Complications Exercise Tolerance Exercise Tolerance: Metabolic Equivalents>4 Pertinent Negatives Pertinent Negatives: No Symptoms of GERD, No Major Cardiovascular Symptoms or Complaints, No Major Pulmonary Symptoms or Complaints and No History of CVA/TIA Cardiac & Pulmonary Exam Cardiac Exam: Normal S1/S2 Heart Sounds Pulmonary Exam: Clear Bilateral Breath Sounds Implantable Cardiac Device Does patient have a Pacemaker or an ICD?: No Airway Exam Known Difficult Airway: No Mallampati Class: 2 Mouth Opening: Normal (> 3cm) Thyromental Distance: Greater than 3 cm Neck Range of Motion: Full ROM Neck Circumference: Normal Teeth Condition: Normal Dentition ASA Classification ASA Score: ASA 2 Emergency Case?: No NPO Status NPO Status: NPO Clears >2 hours, Solids >8 hours Status Status: Negative HCG Anesthesia Plan Resuscitation Status: Full Code Anesthesia Technique: General Anesthesia Airway Planned: Natural Airway Monitors Used: Standard Monitors
[2022-11-08 08:02] VITALS: BMI 25.5
[2022-11-08] MEDS: Lactated Ringers 1,000 ML 80 ML IV (08:10)
[2022-11-08 08:54] VITALS: BP 140/90; PULSE 86; RESP 18; TEMP 36.7; O2SAT 100
[2022-11-08 09:20] VITALS: BP 139/93; PULSE 82; RESP 18; TEMP 36.8; O2SAT 100
--- NOTE | 2022-11-08 09:20 | W.ANESPOSTOP ---
Postoperative Evaluation Date, Time and Location Date Performed: 11/08/22 Time Performed: 09:00 Patient Location: Day Surgery Unit Vital Signs Most Recent Imported Vital Signs: Most Recent Vital Signs Temp Pulse Resp BP Pulse Ox 36.7 C 86 18 140/90 100 11/08/22 08:54 11/08/22 08:54 11/08/22 08:54 11/08/22 08:54 11/08/22 08:54 Pain Score Most Recent Pain Score: Most Recent Pain Score Pain Level 0 11/08/22 08:54 Assessment Mental Status: Awake (Alert & Oriented to Patient Baseline) Airway and Respiratory Function: Patent airway with normal (patient baseline) respiratory exam Cardiovascular Function: Hemodynamically Stable Hydration Status: Adequately Hydrated Nausea & Vomiting: No Nausea or Vomiting Pain: Pt. Denies Any Pain Peripheral Nerve Block: Patient did not receive a nerve block
== END 2022-11-08 09:50 | disposition home or self-care (01) ==
PROVIDERS: PCP Physician Assistant Medical; Visit Provider Surgery
PROC: 0DJD8ZZ Inspection of Lower Intestinal Tract, Via Natural or Artificial Opening Endoscopic (ICD-10-PCS; CPT 45378; principal; 2022-11-08 08:15)
DX: Z12.11 Encounter for screening for malignant neoplasm of colon (principal); Z80.0 Family history of malignant neoplasm of digestive organs
CPT/HCPCS: 45378; 81025; J2405

== ENCOUNTER → 2022-11-11 02:52 | Outpatient (CLI) | payer BC, SELFPAY ==
--- NOTE | 2022-11-11 | DI.RAD_ITS ---
Exam(s) XR SHOULDER RT COMPLETE 2+V EXAM: XR SHOULDER RT COMPLETE 2+V CLINICAL HISTORY: RT SHOULDER AND NECK PAIN, M25.511,M54.2. TECHNIQUE: 2D digital imaging was performed. COMPARISON: CR XR SHOULDER RT COMPLETE 2+V from 05/07/2019 FINDINGS: Five views. No evidence of fracture or dislocation or abnormal soft tissue calcifications. No degenerative perez es in the glenohumeral and AC joints. No joint space narrowing. Subacromial space does not appear d iminished. Bone density normal. No osseous lesions. IMPRESSION: No significant osseous findings in the right shoulder. DATA REPOSITORY: RADIATION DOSE DELIVERED:
== END ==
PROVIDERS: PCP Physician Assistant Medical; Visit Provider Physician Assistant Medical
DX: M25.511 Pain in right shoulder (principal); M54.2 Cervicalgia
CPT/HCPCS: 73030

== ENCOUNTER → 2022-11-14 02:30 | Outpatient (CLI) | payer BC, SELFPAY ==
--- NOTE | 2022-11-14 | DI.MRI_ITS ---
Exam(s) MR CERVICAL SPINE WO EXAM: MR CERVICAL SPINE WO CLINICAL HISTORY: NECK PAIN M54.2 TECHNIQUE: Multiplanar multisequence MRI of the cervical spine was performed without intravenous con trast. COMPARISON: MR MR CERVICAL SPINE WO from 05/13/2019 FINDINGS: CERVICOMEDULLARY JUNCTION: Intact with no evidence of cerebellar tonsillar ectopia. No obvious abnor mality of the odontoid process. No evidence of Chiari 1 malformation. CERVICAL SPINAL CORD: There is no abnormal signal in the cervical spinal cord and no evidence of foca l cord atrophy nor focal cord swelling. OSSEOUS:There are no cervical fractures evident. No significant osseous lesions in the cervical vert ebrae. INDIVIDUAL LEVELS: C2-3: No disc herniation nor central canal stenosis. No foraminal stenosis. No facet arthropathy. C3-4: No disc herniation nor central canal stenosis.No facet arthropathy. No foraminal stenosis. C4-5: No disc herniation nor central canal stenosis.No facet arthropathy. No foraminal stenosis C5-6: Normal disc height and signal. No disc herniation or central canal stenosis. No facet arthrop athy. No foraminal stenosis. C6-7: The previously present spine small disc herniation at this level is significantly increased in size. There is now a prominent posterolateral right disc herniation which indents the thecal sac and occupies a significant amount of the lateral recess at this level. The disc herniation extends post eriorly 6 mm and is approximately 1 cm wide. It does not extend into the exiting right neural forame n. There is no foraminal stenosis on either side at this level. C7-T1: No disc herniation nor central canal stenosis. No facet arthropathy.No foraminal stenosis. IMPRESSION: 1. There is prominent posterolateral right disc herniation at C6-7 level as described above which has significantly increased in size when compared to the prior MRI scan of May 2019. 2. Other levels remain unremarkable. 3. There is no significant facet arthropathy in the cervical spine and there are no significant [place]ch [place] joint osteophytes evident. 4. There is no abnormal signal in the cervical spinal cord. DATA REPOSITORY:
== END ==
PROVIDERS: PCP Physician Assistant Medical; Visit Provider Physician Assistant Medical
DX: M50.123 Cervical disc disorder at C6-C7 level with radiculopathy (principal)
CPT/HCPCS: 72141

== ENCOUNTER → 2022-12-09 02:18 | Outpatient (CLI) | payer BC, SELFPAY ==
--- NOTE | 2022-12-09 07:40 | DI.RAD_ITS ---
Exam(s) XR CERVICAL SP COLLIER TRAUMA 2-3V EXAM: XR CERVICAL SP COLLIER TRAUMA 2-3V CLINICAL HISTORY: CERVICAL DISC HERNIATION M50.20. TECHNIQUE: 2D digital imaging was performed. Lateral views performed in neutral, flexion and extens ion. COMPARISON: MR MR CERVICAL SPINE WO from 11/14/2022 FINDINGS: BONES: No fracture or destructive lesion. Vertebral bodies are unremarkable. DISKS: Intervertebral disc spaces are maintained. There are small endplate osteophytes at C5-6 and C 6-7. ALIGNMENT: Cervical spinal alignment is within normal limits. The odontoid and atlantoaxial articulat ions are normal. No subluxation with flexion or extension. SOFT TISSUE: Normal. IMPRESSION: Mild degenerative disc changes at C5-6 and C6-7. DATA REPOSITORY: RADIATION DOSE DELIVERED:
== END ==
PROVIDERS: PCP Physician Assistant Medical; Visit Provider Physician Assistant Medical
DX: M47.22 Other spondylosis with radiculopathy, cervical region; M50.20 Other cervical disc displacement, unspecified cervical region
CPT/HCPCS: 72040

== ENCOUNTER 2023-04-30 11:47 | Outpatient (REF) | payer BC, SELFPAY ==
[2023-04-30 15:36] LABS: ALT 19 U/L (14-59); AST 18 U/L (15-37); Albumin 4.3 g/dL (3.4-5.0); Alkaline Phosphatase 63 U/L (46-116); Anion Gap 8.5 mmol/L (3-11); BUN 13 mg/dL (7-18); Bilirubin, Total 0.4 mg/dL (0.2-1.0); CO2 25.5 mmol/L (21.0-32.0); CREATININE 0.8 mg/dL (0.55-1.02); Calcium 9.5 mg/dL (8.5-10.1); Chloride 103 mmol/L (98-107); Glucose 94 mg/dL (74-106); Potassium 4.2 mmol/L (3.5-5.1); Sodium 137 mmol/L (136-145); Total Protein 8.2 g/dL (6.4-8.2)
[2023-04-30 16:07] LABS: Calculated LDL 156 mg/dL (<100); Cholesterol 235 mg/dL (<200); HDL Cholesterol 65 mg/dL (40-60); Triglyceride 73 mg/dL (<150)
[2023-04-30 16:29] LABS: Vitamin D 25 Total 37.5 ng/mL (30-100)
== END 2023-04-30 11:48 | disposition home or self-care (01) ==
LOC: NCHCN 11:47
PROVIDERS: PCP Physician Assistant Medical; Visit Provider Physician Assistant Medical
DX: Z00.00 Encounter for general adult medical examination without abnormal findings (principal)
CPT/HCPCS: 80053; 80061; 82306

== ENCOUNTER → 2023-05-02 00:48 | Outpatient (CLI) | payer BC, SELFPAY ==
--- NOTE | 2023-05-02 07:37 | DI.MAMMO_ITS ---
Exam(s) MAMMO SCREENING EXAM: MAMMO SCREENING CLINICAL HISTORY: SCREENING MAMMO FOR BREAST CANCER Z12.31. TECHNIQUE: Bilateral full field digital CC and MLO mammographic images were obtained with 3D tomosyn thesis and utilizing computer aided detection (CAD). COMPARISON: Prior mammograms were reviewed. FINDINGS: There has been no significant change in the appearance and distribution of the fibroglandular tissue. There are no CAD designations. No new left breast findings. In the central right breast there is a small roundish asymmetric density now evident located 5 cm in from the nipple on the CC view and 6 cm in from the nipple on the MLO view. Measures 4 mm. Possible small new nodule. There are no new malignant-appearing microcalcification groups in this region nor elsewhere in either breast. There is no significant architectural distortion nor skin thickening-retraction. IMPRESSION: 1. No radiographic evidence of malignancy in left breast. 2. New asymmetric density newly-possible nodule in the right breast as described above. Spot compre ssion view and ultrasound are recommended. BI-RADS Category 0 - Assessment Incomplete: Need additional imaging evaluation Breast Density - Category B - Scattered areas of fibroglandular density Breast density Category C or D implies that the patient has dense breast tissue. Dense breast tissue can make it harder to find cancer on a mammogram. Dense breast tissue is also associated with an incr eased risk of breast cancer. This information about the result of the mammogram report was provided to the patient to raise their awareness. Use this report when you speak with the patient about their risks for breast cancer, which includes their family history. At that time, you may recommend additional screening tests (Ultrasoun d or MRI) as these tests may add significant information. A negative radiographic report should not delay biopsy if a dominant or clinically suspicious mass is present. Up to ten percent of cancers are not identified on mammography. A negative report may reinforce clinical impression. Adenosis and dense breasts may obscure an underlying neoplasm. False positive reports average 6 to 10%. Patient will receive a letter notifying them of these results.
== END ==
PROVIDERS: PCP Physician Assistant Medical; Visit Provider Physician Assistant Medical
DX: Z12.31 Encounter for screening mammogram for malignant neoplasm of breast (principal)
CPT/HCPCS: 77063; 77067

== ENCOUNTER → 2023-05-08 04:19 | Outpatient (CLI) | payer BC, SELFPAY ==
--- NOTE | 2023-05-08 | DI.US_ITS ---
Exam(s) MG MAMMO SCREEN CALL BACK UNI US BREAST RT LIMITED EXAM: MG MAMMO SCREEN CALL BACK UNI and U/S breast RT limited CLINICAL HISTORY: F/U MAMMO, NEW RT ASYMMETRIC DENSITY,? NODULE,R92.8. TECHNIQUE: Craniocaudal and mediolateral oblique Full Field Digital Mammography views of the right b reast with Computer Aided Diagnosis followed by Tomosynthesis and right breast ultrasound. COMPARISON: Comparison is made with prior examinations. FINDINGS: Mammography/Tomosynthesis: Masses/Architectural Distortion: The area of nodularity in the upper outer quadrant of the right efrain st does not persist on the additional views. No suspicious nodules or areas of architectural distort ion are seen. Microcalcifictions: No suspicious pleomorphic-type are seen. Skin Thickening/Nipple Retraction: None. Limited right breast US: Echotexture: Normal appearance of the glandular tissue. Shadowing: No suspicious foci. Cyst: None. Solid lesions: None seen. Ductal dilation: None. IMPRESSION: 1. No evidence of malignancy is noted. 2. Unless there is more urgent need, follow-up screening mammography is recommended, as per [place] [employer] guidelines. 3. The findings were discussed with the patient on the date of the examination. BI-RADS Category 1 - Negative Breast Density - Category B - Scattered areas of fibroglandular density Breast density Category C or D implies that the patient has dense breast tissue. Dense breast tissue can make it harder to find cancer on a mammogram. Dense breast tissue is also associated with an incr eased risk of breast cancer. This information about the result of the mammogram report was provided to the patient to raise their awareness. Use this report when you speak with the patient about their risks for breast cancer, which includes their family history. At that time, you may recommend additional screening tests (Ultrasoun d or MRI) as these tests may add significant information. A negative radiographic report should not delay biopsy if a dominant or clinically suspicious mass is present. Up to ten percent of cancers are not identified on mammography. A negative report may reinforce clinical impression. Adenosis and dense breasts may obscure an underlying neoplasm. False positive reports average 6 to 10%. Patient will receive a letter notifying them of these results.
== END ==
PROVIDERS: PCP Physician Assistant Medical; Visit Provider Physician Assistant Medical
DX: Z12.31 Encounter for screening mammogram for malignant neoplasm of breast (principal); R92.8 Other abnormal and inconclusive findings on diagnostic imaging of breast
CPT/HCPCS: 76642; 77063; 77067

== ENCOUNTER 2023-10-14 01:41 | Outpatient (CLI) | payer BC, SELFPAY ==
--- NOTE | 2023-10-14 07:51 | DI.RAD_ITS ---
Exam(s) XR FOOT RT COMPLETE EXAM: XR FOOT RT COMPLETE CLINICAL HISTORY: Right foot pain,m79.671. TECHNIQUE: 2D digital imaging was performed of the right foot. Four images were obtained. AP, obli que and lateral views were obtained. COMPARISON: No exams were available for comparison FINDINGS: BONES: No acute fracture is present. No bony destructive lesion is seen. Postsurgical changes are see n in the 1st metatarsal bone. JOINTS: No dislocation present. The joint spaces are well maintained. SOFT TISSUE: Normal. IMPRESSION: Postsurgical changes involving the 1st metatarsal bone. DATA REPOSITORY: RADIATION DOSE DELIVERED:
== END 2023-10-14 02:01 ==
LOC: DI 01:41
PROVIDERS: PCP Physician Assistant Medical; Visit Provider Podiatrist
DX: M79.671 Pain in right foot (principal)
CPT/HCPCS: 73630

== ENCOUNTER 2024-04-28 02:03 | Outpatient (CLI) | payer BC, SELFPAY ==
--- NOTE | 2024-04-28 10:00 | DI.RAD_ITS ---
Exam(s) XR CERVICAL SP COLLIER TRAUMA 2-3V EXAM: XR CERVICAL SP COLLIER TRAUMA 2-3V CLINICAL HISTORY: S/P C6-7 disc replacement, 01/16/2023, Z98.890; assess ROM. TECHNIQUE: 2D digital imaging was performed. Two views. Lateral views in flexion and extension. COMPARISON: CR XR CERVICAL SP COLLIER TRAUMA 2-3V from 12/09/2022 FINDINGS: BONES: No fracture or destructive lesion. Vertebral bodies are unremarkable. DISKS: There is now a radiopaque disc spacer at C6-7. There is mild narrowing of the C5-6 disc space and small endplate osteophytes projecting anteriorly. Findings appear unchanged from prior. Interv ertebral disc spaces are maintained. ALIGNMENT: Cervical spinal alignment is within normal limits. The odontoid and atlantoaxial articulat ions are normal. No subluxation with flexion or extension. SOFT TISSUE: Normal. The lung apices are clear. IMPRESSION: Status post placement a C6-7 disc spacer. Mild degenerative changes at C5-6 appear stable. DATA REPOSITORY: RADIATION DOSE DELIVERED:
== END 2024-04-28 02:23 ==
LOC: DI 02:03
PROVIDERS: PCP Physician Assistant Medical; Visit Provider Neurological Surgery
DX: Z98.890 Other specified postprocedural states (principal); M50.223 Other cervical disc displacement at C6-C7 level
CPT/HCPCS: 72040

== ENCOUNTER 2024-06-11 01:32 | Outpatient (CLI) | payer BC, SELFPAY ==
--- NOTE | 2024-06-11 | DI.MAMMO_ITS ---
Exam(s) MAMMO SCREENING EXAM: MAMMO SCREENING CLINICAL HISTORY: SCREENING,Z12.31 TECHNIQUE: Mammograms were interpreted according to the usual protocol including computer analysis w [employer] CAD system, tomosynthesis and C-view imaging. COMPARISON: 2017 through 2023 FINDINGS: The breasts are composed of scattered fibroglandular densities, Breast Density category B. No suspicious masses or suspicious microcalcifications are seen. No skin thickening or abnormal axillary lymph nodes are seen. There has been no significant change from prior exams. IMPRESSION: BI-RADS Category 1, Negative mammogram Yearly screening mammography is recommended. Breast Density - Category B, scattered fibroglandular densities. Breast density Category C or D implies that the patient has dense breast tissue. Dense breast tissue can make it harder to find cancer on a mammogram. Dense breast tissue is also associated with an incr eased risk of breast cancer. This information about the result of the mammogram report was provided to the patient to raise their awareness. Use this report when you speak with the patient about their risks for breast cancer, which includes their family history. At that time, you may recommend additional screening tests (Ultrasoun d or MRI) as these tests may add significant information. A negative radiographic report should not delay biopsy if a dominant or clinically suspicious mass is present. Up to ten percent of cancers are not identified on mammography. A negative report may reinforce clinical impression. Adenosis and dense breasts may obscure an underlying neoplasm. False positive reports average 6 to 10%. Patient will receive a letter notifying them of these results.
== END 2024-06-11 01:52 ==
LOC: DI 01:32
PROVIDERS: PCP Physician Assistant Medical; Visit Provider Physician Assistant Medical
DX: Z12.31 Encounter for screening mammogram for malignant neoplasm of breast (principal); R92.323 Mammographic fibroglandular density, bilateral breasts
CPT/HCPCS: 77063; 77067

== ENCOUNTER 2024-06-21 04:39 | Outpatient (CLI) | payer BC, SELFPAY ==
[2024-06-22 18:54] LABS: Calculated LDL 127 mg/dL (<100); Cholesterol 214 mg/dL (<200); HDL Cholesterol 66 mg/dL (>or=50); Triglyceride 109 mg/dL (<150)
== END 2024-06-21 04:40 | disposition home or self-care (01) ==
PROVIDERS: PCP Physician Assistant Medical; Visit Provider Physician Assistant Medical
DX: Z13.6 Encounter for screening for cardiovascular disorders (principal)
CPT/HCPCS: 36415; 80061

== ENCOUNTER 2024-06-24 01:12 | Outpatient (CLI) | payer BC, SELFPAY ==
--- NOTE | 2024-06-24 11:08 | DI.RAD_ITS ---
Exam(s) XR ELBOW LT COMPLETE EXAM: XR ELBOW LT COMPLETE CLINICAL HISTORY: PAIN LEFT ELBOW M25.522. TECHNIQUE: 2D digital imaging was performed of the left elbow. Three images were obtained. AP, lat eral and oblique views were obtained. COMPARISON: No exams were available for comparison FINDINGS: BONES: No acute fracture is present. No bony destructive lesion is seen. JOINTS: The elbow is normally aligned. No joint effusion is seen. SOFT TISSUE: Normal. IMPRESSION: Unremarkable radiographs of the left elbow. DATA REPOSITORY: RADIATION DOSE DELIVERED:
--- NOTE | 2024-06-24 11:08 | DI.RAD_ITS ---
Exam(s) XR HIP LT COMPLETE AP PELVIS EXAM: XR HIP LT COMPLETE AP PELVIS CLINICAL HISTORY: PAIN LEFT HIP M25.552. TECHNIQUE: 2D digital imaging was performed of the left hip. Two views were obtained. AP pelvis an d lateral left hip views were obtained. COMPARISON: CR INTRAVENOUS PYELOGRAM NO TOMOS from 04/28/2015 FINDINGS: BONES: No acute fracture is present. No bony destructive lesion is seen. Stable sclerotic focus in th e supra-acetabular region likely reflecting a bone island. JOINTS: No dislocation present. SOFT TISSUE: Normal. IMPRESSION: Unremarkable radiographs of the left hip. Unremarkable radiographs of the pelvis DATA REPOSITORY: RADIATION DOSE DELIVERED:
== END 2024-06-24 01:32 ==
LOC: DI 01:12
PROVIDERS: PCP Physician Assistant Medical; Visit Provider Physician Assistant Medical
DX: M25.552 Pain in left hip (principal); M25.522 Pain in left elbow
CPT/HCPCS: 73080; 73502

== ENCOUNTER 2024-12-14 09:37 | Emergency (ER) | payer BC, SELFPAY ==
[2024-12-14] VITALS (19 sets, daily range): BP systolic 157–184; BP diastolic 89–94; PULSE 74–95; RESP 13–22; TEMP 36.2–36.8; O2SAT 96–100
[2024-12-14] MEDS: Ondansetron 4 MG/2 ML VIAL IVP (10:44)
[2024-12-14] MEDS: FAMOTIDINE 20 MG in Normal Saline 100 ML 400 MG IVPB (10:44)
[2024-12-14] MEDS: Normal Saline 1,000 ML 1000 ML IV (10:45)
[2024-12-14 10:47] LABS: Abs Immature Grans 0.04 10^3/uL (0.0-0.06); HCT 38.9 % (36.0-46.0); HGB 13.4 g/dL (11.2-15.7); Immature Grans % 0.3 %; MCH 30.7 pg (27.0-33.0); MCHC 34.4 % (32.0-36.0); MCV 89 fL (80-95); MPV 8.9 fL (8.0-11.0); Platelet Count 398 10^3/uL (130-400); RBC 4.36 10^6/uL (3.93-5.22); RDW 11.5 % (11.7-14.6); RDW-SD 37.2 fL; WBC 13.19 10^3/uL (4.4-10.8)
[2024-12-14 10:48] LABS: Glucose Negative (Negative)
[2024-12-14 10:56] LABS: C & S Indicated? No; RBC 0-2 HPF (0-2); WBC 0-2 HPF (0-5)
[2024-12-14 11:01] LABS: ALT 26 U/L (14-59); AST 21 U/L (15-37); Albumin 4.0 g/dL (3.4-5.0); Alkaline Phosphatase 92 U/L (46-116); Anion Gap 13.7 mmol/L (3-11); BUN 11 mg/dL (7-18); Bilirubin, Total 0.4 mg/dL (0.2-1.0); CO2 23.3 mmol/L (21.0-32.0); Calcium 9.2 mg/dL (8.5-10.1); Chloride 101 mmol/L (98-107); Glucose 107 mg/dL (74-106); Lipase 42 U/L (<78); Potassium 3.7 mmol/L (3.5-5.1); Sodium 138 mmol/L (136-145); Total Protein 8.3 g/dL (6.4-8.2)
--- NOTE | 2024-12-14 11:30 | W.ED.GENAD ---
Discharge Plan Disposition Patient Disposition: Home Condition: Stable Discharge Details Clinical Impression: Nausea & vomiting Primary Care Provider: Romel Hawkins ED Provider: Diana Cortez Home Meds and New Rx's Prescriptions: New ondansetron 4 mg tablet,disintegrating 4 mg PO TID PRN3 Days Qty: 10 0RF Continued ketoconazole 2 % cream 1 applic topical DAILY calcium-vitamin D3-magnesium 200 mg calcium- 1.25 mcg capsule PO Probiotic-Digestive Enzymes 5-250 mg Capsule 1 cap PO DAILY vitamin A 2,400 mcg capsule 2,400 mcg PO DAILY melatonin 3 mg capsule 5 mg PO HS PRN Discharge Instructions Instructions: Nausea and Vomiting, Adult ED Additional Instructions: Take Zofran as needed for nausea and vomiting Clear liquid diet, broth, popsicles, Gatorade May progress to bland diet with toast applesauce bananas as tolerated Please return earlier should you have abdominal pain, fever, or should any new concerns arise Stand Alone Forms: Portal Information Referrals: Romel Hawkins PA [Primary Care Provider, Medicine] Discharge Data Discharge Date/Time-TO BE ENTERED AT DEPARTURE: 12/14/24 13:31 HPI General Date/Time Provider Initiated Documentation: 12/14/24 09:58. HPI Narrative: This 49-year-old female presents with nausea and vomiting that started this morning. She returned from a cruise on Friday. She reports mild headache. Denies any abdominal pain or known sick contacts with similar symptoms. Denies recent antibiotics or diarrhea. Denies chance of . denies blood in vomitus, has reported chills. Related Data Home Medications Medication Instructions Recorded Confirmed L. acidophilus 5 mg-digestive 1 cap PO DAILY 07/23/19 06/30/24 enzymes combo no.5 250 mg capsule (Probiotic-Digestive Enzymes) vitamin A 2,400 mcg capsule 2,400 mcg PO DAILY 02/23/21 06/30/24 melatonin 3 mg capsule 5 mg PO HS PRN 07/17/22 06/30/24 ketoconazole 2 % topical cream 1 applic topical DAILY 09/25/23 06/30/24 calcium 200 mg-vitamin D3 1.25 cap PO 12/11/23 10/18/24 mcg-magnesium 50 mg capsule ondansetron 4 mg disintegrating 4 mg PO TID PRN 3 days #10 tabs 12/14/24 tablet Previous Rx's Medication Instructions Recorded ondansetron 4 mg disintegrating 4 mg PO TID PRN 3 days #10 tabs 12/14/24 tablet Allergies Allergy/AdvReac Type Severity Reaction Status Date / Time mometasone furoate (From Allergy Mild Unknown Verified 12/14/24 09:57 Nasonex) chlorhexidine AdvReac Severe felt like Verified 12/14/24 09:57 my foot was on fire erythromycin base AdvReac Severe vomiting Verified 12/14/24 09:57 dicloxacillin AdvReac Mild vomiting, Verified 12/14/24 09:57 dizzy, perspiration General Stated Complaint: Nausea/Vomit/Diar SHARMIN: 3 Exam Narrative Exam Narrative: Alert and oriented 49-year-old female pale, uncomfortable, no abdominal tenderness place mucous membranes oropharynx patent uvula midline no rebound or guarding to abdomen no respiratory distress Course Vital Signs Vital signs: Vital Signs Temperature 36.2 C L 12/14/24 09:50 Pulse 75 12/14/24 09:50 Respiratory Rate 18 12/14/24 09:50 Blood Pressure 161/91 H 12/14/24 09:50 Pulse Oximetry 98 12/14/24 09:50 Temperature 36.6 C 12/14/24 11:22 Temperature Source Oral 12/14/24 11:22 Pulse 80 12/14/24 11:22 Pulse Rhythm Regular 12/14/24 11:22 Pulse Strength Normal 12/14/24 11:22 Respiratory Rate 20 12/14/24 11:22 Respiratory Effort Normal 12/14/24 11:22 Respiratory Depth Normal 12/14/24 11:22 Respiratory Pattern Normal 12/14/24 11:22 Blood Pressure 184/94 H 12/14/24 11:22 Blood Pressure Mean 124 12/14/24 11:22 Blood Pressure Position Sitting 12/14/24 11:22 Pulse Oximetry 100 12/14/24 11:22 Oxygen Delivery Method Room Air 12/14/24 11:22 Oxygen Flow Rate 0 12/14/24 11:22 Pain Level 0 12/14/24 11:22 Lab/Test Results Lab/Test Results: Laboratory Tests Range/Units 12/14/24 12/14/24 10:30 10:35 WBC (4.4-10.8) 10^3/uL 13.19 H RBC (3.93-5.22) 10^6/uL 4.36 Hgb (11.2-15.7) g/dL 13.4 Hct (36.0-46.0) % 38.9 MCV (80-95) fL 89 MCH (27.0-33.0) pg 30.7 MCHC (32.0-36.0) % 34.4 RDW (11.7-14.6) % 11.5 L Plt Count (130-400) 10^3/uL 398 MPV (8.0-11.0) fL 8.9 Immature Gran % % 0.3 Neutrophils % % 80.5 Lymphocytes % % 13.9 Monocytes % % 4.6 Eosinophils % % 0.2 Basophils % % 0.5 Nucleated RBC % (0.0-0.3) % 0.0 Absolute Neutrophils (1.2-6.7) 10^3/uL 10.62 H Absolute Lymphocytes (1.2-3.4) 10^3/uL 1.83 Absolute Monocytes (0.1-0.8) 10^3/uL 0.61 Absolute Eosinophils (0.0-0.7) 10^3/uL 0.03 Absolute Basophils (0.0-0.2) 10^3/uL 0.07 Sodium (136-145) mmol/L 138 Potassium (3.5-5.1) mmol/L 3.7 Chloride (98-107) mmol/L 101 Carbon Dioxide (21.0-32.0) mmol/L 23.3 Anion Gap (3-11) mmol/L 13.7 H BUN (7-18) mg/dL 11 Creatinine (0.55-1.02) mg/dL 0.8 Est GFR (CKD-EPI 2020) (mL/min/1.73m2) 90.83 Glucose (74-106) mg/dL 107 H Calcium (8.5-10.1) mg/dL 9.2 Total Bilirubin (0.2-1.0) mg/dL 0.4 AST (15-37) U/L 21 ALT (14-59) U/L 26 Alkaline Phosphatase (46-116) U/L 92 Total Protein (6.4-8.2) g/dL 8.3 H Albumin (3.4-5.0) g/dL 4.0 Lipase (<78) U/L 42 Urine Color (Yellow) Yellow Urine Clarity (Clear) Sl Cloudy Urine pH (5-8) 8.5 H Ur Specific Roberts (1.005-1.025) 1.020 Urine Protein (Neg-Trace) mg/dL 30 H Urine Ketones (Negative) mg/dL Trace H Urine Blood (Negative) Negative Urine Nitrite (Negative) Negative Urine Bilirubin (Negative) Negative Urine Urobilinogen (Up to 0.2) mg/dL 0.2 Ur Leukocyte Esterase (Negative) Negative Urine RBC (0-2) HPF 0-2 Urine WBC (0-5) HPF 0-2 Ur Epithelial Cells (Negative) HPF Few Urine Crystals (Negative) HPF Few Amorphous Urine Bacteria (Negative) HPF Few Urine Casts (Negative) LPF 0-2 Coarse Granular Urine Mucus (Negative) Trace Ur Culture Indicated? No Urine Glucose (Negative) mg/dL Negative POC- Test(urine) Negative Medical Decision Making results: cbc, cmp, UA without significant acute abnormality. mild gap likely consistent with dehydration Assessment and plan: pt presenting post cruise with nausea and vomiting which started this morning. pt received 1 L of NS and antiemetics. pt is able to tolerate po and feels comfortable with discharge home. zofran rx for home use prescribed. return precautions reviewed and pt expressed understanding PFSH All Active Problems (Updated 12/14/24 @ 13:01 by YINA Reyes) Nausea & vomiting (Acute) SI (sacroiliac) joint dysfunction (Acute) Left Lateral epicondylitis of left elbow (Acute) Meza's neuroma of both feet (Acute) Pain, joint, foot, right (Acute) Sinus tarsi syndrome of right foot (Acute) Achilles tendon contracture, right (Acute) Plantar fasciitis (Acute) Bilateral foot pain (Acute) Pain of right shoulder joint on movement (Acute) History of melanoma (Acute) To [facility] for yearly skin eval Cervical radiculitis (Acute) Tendonitis of left rotator cuff (Acute) Injected 06/24/2018 Right rotator cuff tendinitis (Acute) Corticosteroid injection: 03/30/18 Family history of malignant neoplasm of colon in first degree relative diagnosed when younger than 60 years of age (Acute) Hemorrhoids (Acute) Medical History Melanoma right arm Muscle pain Herpes, genital Migraine Encounter for Papanicolaou smear of cervix Health maintenance examination Menstrual irregularity Eczematous dermatitis Acute pharyngitis Otalgia, right ear Shoulder pain, right Internal hemorrhoids Multiple food allergies Seasonal allergies Allergic rhinitis GERD (gastroesophageal reflux disease) Surgical History History of bunionectomy of left great toe History of melanoma excision (~05/2020) Right upper arm with one lymph node removed Colonoscopy planned (~10/2022) 5 years unless needed H/O colonoscopy (~2004) History of bunionectomy of both great toes Family History Father Colon cancer Brother Colon cancer Mother Heart disease Social History Smoking/Tobacco Use Status: Never Smoking risk assessment performed?: Yes Alcohol Intake: current Alcohol Intake frequency: a few times a week Alcohol type: wine Drug use: Never Substance use type: does not use Household members: spouse Housing: house Number of Children: 2 number of grandchildren: 2 current occupation: [employer] What type of physical activity do you participate in: walking, independent ambulation and regular exercise Special alberto needs: No Seatbelt use: always Do you feel safe at home: Yes Do you feel safe in your relationship?: Yes PAWSS Have you Been Recently Intoxicated or Drunk Within the Last 30 days?: No Have you Ever Experienced Previous Episodes of Alcohol Withdrawal?: No Have you ever Experienced Withdrawal Seizures?: No Have you ever Experienced Delirium Tremens(DT)s?: No Have you ever undergone Alcohol Rehabilitation Treatment (i.e, inpt ot outpatient treatment programs)?: No Have you ever Experienced Blackouts?: No Have you ever Combined Alcohol with other Downers within the last 90 days?: No Have you ever Combined Alcohol with any other Substance of Abuse during the last 90 days?: No Positive Blood Alcohol level on Presentation? [PCS.BAL]: No Evidence of Increased Autonomic Activity (i.e. HR>120, tremor, sweating, agitation, nausea)?: No Result: 0
[2024-12-14] MEDS: ACETAMINOPHEN 500 MG/50 ML BAG 200 MG IVPB (12:03)
== END 2024-12-14 13:31 | disposition home or self-care (01) ==
PROVIDERS: Emergency Provider Physician Assistant; PCP Physician Assistant Medical
DX: R11.2 Nausea with vomiting, unspecified (principal); R51.9 Headache, unspecified
CPT/HCPCS: 80053; 81025; 83690; 96361; 96365; 96367; 96375; 99284; 81003; 81015; 85025; 99283; J0131; J2405